=== PATIENT | female | born 1960 | race Asian ===

== ENCOUNTER 2022-06-02 08:54 | Inpatient (IN) | payer MEDICAID, SELFPAY ==
[~2022-06-02] VITALS: Ht 160 cm; Wt 54.9 kg
[~2022-06-02 08:54] MED LIST: AMLO5TAB66 PO; ASPI-825 PO; ATEN100T92 PO; SIMV-46 PO
[2022-06-02] MEDS ORDERED: ACETAMINOPHEN 500 MG TABLET PO ONE (09:15)
[2022-06-02 09:34] LABS: BASOPHILS % (AUTO) 0.7 % (0.0-2.0); EOSINOPHILS % (AUTO) 0.2 % (1.0-6.0); HEMATOCRIT 45.6 % (36-46); HEMOGLOBIN 15.2 g/dL (12.0-16.0); LYMPHOCYTES # (AUTO) 1.2 K/uL (1.0-4.8); LYMPHOCYTES % (AUTO) 13.6 % (22.0-44.0); MEAN CORPUSCULAR HEMOGLOBIN 29.5 pg (26.0-34.0); MEAN CORPUSCULAR HGB CONC 33.4 G/dL (31.0-37.0); MEAN CORPUSCULAR VOLUME 88 fL (80-100); MONOCYTES # (AUTO) 0.5 K/uL (0.1-1.0); NEUTROPHILS # (AUTO) 7.2 K/uL (1.8-7.7); NEUTROPHILS % (AUTO) 79.5 % (40.0-70.0); PLATELET COUNT (AUTO) 260 K/uL (150-450); RED BLOOD CELL COUNT(AUTO) 5.17 MIL/uL (4.00-5.20); RED CELL DISTRIBUTION WIDTH 14.6 % (11.5-14.5)
[2022-06-02 09:58] LABS: CALCIUM, TOTAL 9.1 mg/dL (8.8-10.5); CREATININE 1.25 mg/dL (0.60-1.30); POTASSIUM 3.5 mmol/L (3.5-5.1)
[2022-06-02] MEDS ORDERED: CLOPIDOGREL BISULFATE 75 MG TABLET PO ONE (10:15)
[2022-06-02] MEDS ORDERED: ACETAMINOPHEN 325 MG TABLET PO PRN (10:30)
[2022-06-02] MEDS ORDERED: ONDANSETRON HCL 4 MG/2 ML VIAL IVP PRN ×2 (10:30→13:30)
[2022-06-02 11:06] LABS: COVID AG,FIA SOURCE NASOPHARYNGEAL
[2022-06-02] MEDS ORDERED: ASPI-1444 PO (11:10)
[2022-06-02] MEDS: AmLODIPine BESYLATE 5 MG TABLET PO SCH (11:15)
[2022-06-02] MEDS: ASPIRIN 81 MG DR TABLET PO SCH (11:15)
[2022-06-02 12:59] VITALS: BP 180/60
[2022-06-02] MEDS ORDERED: ASPIRIN 81 MG CHEWABLE TABLET PO ONE (13:30)
[2022-06-02 15:10] VITALS: BP 188/78
[2022-06-02] MEDS: HydrALAZINE HCL 20 MG/ML VIAL IVP PRN (15:27)
[2022-06-02] MEDS: HEPARIN SODIUM,PORCINE 5,000 UNITS/ML VIAL SQ SCH (16:57)
[2022-06-02 20:19] VITALS: BP 165/91
[2022-06-02] MEDS ORDERED: ATORVASTATIN CALCIUM 20 MG TABLET PO SCH (21:00)
[2022-06-02] MEDS: DOCUSATE SODIUM 100 MG CAPSULE PO SCH (21:20)
[2022-06-03 00:20] VITALS: BP 177/90
[2022-06-03] MEDS: HydrALAZINE HCL 20 MG/ML VIAL IVP PRN ×3 (00:48→20:52)
[2022-06-03] MEDS: HEPARIN SODIUM,PORCINE 5,000 UNITS/ML VIAL SQ SCH ×3 (00:48→17:02)
[2022-06-03 04:23] VITALS: BP 150/66
[2022-06-03 06:49] LABS: CHOL/HDL RATIO 4.3 (3.9-5.7); CREATININE 1.11 mg/dL (0.60-1.30); POTASSIUM 3.5 mmol/L (3.5-5.1); THYROID STIMULATING HORMONE 2.72 uIU/mL (0.36-3.74)
[2022-06-03 06:56] LABS: BASOPHILS % (AUTO) 0.6 % (0.0-2.0); EOSINOPHILS % (AUTO) 0.6 % (1.0-6.0); HEMATOCRIT 42.8 % (36-46); HEMOGLOBIN 14.2 g/dL (12.0-16.0); LYMPHOCYTES # (AUTO) 2.3 K/uL (1.0-4.8); LYMPHOCYTES % (AUTO) 22.6 % (22.0-44.0); MEAN CORPUSCULAR HEMOGLOBIN 29.5 pg (26.0-34.0); MEAN CORPUSCULAR HGB CONC 33.1 G/dL (31.0-37.0); MEAN CORPUSCULAR VOLUME 89 fL (80-100); MONOCYTES # (AUTO) 0.9 K/uL (0.1-1.0); NEUTROPHILS # (AUTO) 6.7 K/uL (1.8-7.7); NEUTROPHILS % (AUTO) 67.2 % (40.0-70.0); PLATELET COUNT (AUTO) 256 K/uL (150-450); RED BLOOD CELL COUNT(AUTO) 4.81 MIL/uL (4.00-5.20); RED CELL DISTRIBUTION WIDTH 14.9 % (11.5-14.5)
[2022-06-03 08:09] VITALS: BP 182/83
[2022-06-03] MEDS: AmLODIPine BESYLATE 5 MG TABLET PO SCH (09:03)
[2022-06-03] MEDS: ATENOLOL 100 MG TABLET PO SCH (09:03)
[2022-06-03] MEDS: DOCUSATE SODIUM 100 MG CAPSULE PO SCH ×2 (09:03→20:50)
[2022-06-03] MEDS: ASPIRIN 81 MG DR TABLET PO SCH (09:03)
[2022-06-03] MEDS: PANTOPRAZOLE SODIUM 40 MG DR TABLET PO SCH (09:03)
[2022-06-03] MEDS ORDERED: AmLODIPine BESYLATE 5 MG TABLET PO ONE (09:45)
[2022-06-03 12:08] VITALS: BP 185/67
[2022-06-03 16:08] VITALS: BP 184/69
[2022-06-03 20:17] VITALS: BP 181/67
[2022-06-03] MEDS: ATORVASTATIN CALCIUM 20 MG TABLET PO SCH (20:51)
[2022-06-03] MEDS ORDERED: CYCLOBENZAPRINE HCL 10 MG TABLET PO ONE (23:00)
[2022-06-04] VITALS (7 sets, daily range): BP systolic 150–184; BP diastolic 54–72
[2022-06-04] MEDS ORDERED: NITROGLYCERIN 0.4 MG SUBLINGUAL TABLET #25 SL ONE (00:15)
[2022-06-04] MEDS: HEPARIN SODIUM,PORCINE 5,000 UNITS/ML VIAL SQ SCH ×4 (00:48→23:31)
[2022-06-04] MEDS: HydrALAZINE HCL 20 MG/ML VIAL IVP PRN (04:39)
[2022-06-04 07:00] LABS: BASOPHILS % (AUTO) 0.6 % (0.0-2.0); EOSINOPHILS % (AUTO) 0.1 % (1.0-6.0); HEMATOCRIT 44.8 % (36-46); HEMOGLOBIN 15.1 g/dL (12.0-16.0); LYMPHOCYTES # (AUTO) 1.3 K/uL (1.0-4.8); LYMPHOCYTES % (AUTO) 12.1 % (22.0-44.0); MEAN CORPUSCULAR HEMOGLOBIN 29.7 pg (26.0-34.0); MEAN CORPUSCULAR HGB CONC 33.8 G/dL (31.0-37.0); MEAN CORPUSCULAR VOLUME 88 fL (80-100); NEUTROPHILS # (AUTO) 8.6 K/uL (1.8-7.7); NEUTROPHILS % (AUTO) 78.2 % (40.0-70.0); PLATELET COUNT (AUTO) 296 K/uL (150-450); RED BLOOD CELL COUNT(AUTO) 5.09 MIL/uL (4.00-5.20); RED CELL DISTRIBUTION WIDTH 14.8 % (11.5-14.5)
[2022-06-04 07:08] LABS: CALCIUM, TOTAL 9.3 mg/dL (8.8-10.5); CREATININE 1.1 mg/dL (0.60-1.30); POTASSIUM 3.6 mmol/L (3.5-5.1)
[2022-06-04 07:23] LABS: BILIRUBIN,DIRECT 0.2 mg/dL (0.00-0.20); BILIRUBIN,TOTAL 0.6 mg/dL (0.1-1.0); TOTAL PROTEIN, SERUM 6.6 g/dL (6.4-8.2)
[2022-06-04] MEDS: DOCUSATE SODIUM 100 MG CAPSULE PO SCH ×2 (11:46→21:39)
[2022-06-04] MEDS: ASPIRIN 81 MG DR TABLET PO SCH (11:46)
[2022-06-04] MEDS: PANTOPRAZOLE SODIUM 40 MG DR TABLET PO SCH (11:46)
[2022-06-04] MEDS: AmLODIPine BESYLATE 10 MG TABLET PO SCH (11:46)
[2022-06-04] MEDS: CLOPIDOGREL BISULFATE 75 MG TABLET PO SCH (11:46)
[2022-06-04] MEDS: ATENOLOL 100 MG TABLET PO SCH (11:49)
[2022-06-04] MEDS: HydrALAZINE HCL 25 MG TABLET PO SCH ×2 (16:27→21:39)
[2022-06-04] MEDS ORDERED: DEXTROSE 5%-0.45% SODIUM CHL 1,000 ML IV ONE (21:15)
[2022-06-04] MEDS: ATORVASTATIN CALCIUM 20 MG TABLET PO SCH (21:39)
[2022-06-05 00:07] VITALS: BP 161/69
[2022-06-05] MEDS: HydrALAZINE HCL 20 MG/ML VIAL IVP PRN (01:08)
[2022-06-05 06:09] LABS: BASOPHILS % (AUTO) 0.5 % (0.0-2.0); EOSINOPHILS % (AUTO) 0.6 % (1.0-6.0); HEMATOCRIT 42.6 % (36-46); HEMOGLOBIN 14.1 g/dL (12.0-16.0); LYMPHOCYTES # (AUTO) 0.9 K/uL (1.0-4.8); LYMPHOCYTES % (AUTO) 9.7 % (22.0-44.0); MEAN CORPUSCULAR HEMOGLOBIN 29.3 pg (26.0-34.0); MEAN CORPUSCULAR HGB CONC 33.2 G/dL (31.0-37.0); MEAN CORPUSCULAR VOLUME 88 fL (80-100); MONOCYTES % (AUTO) 10.5 % (2.0-9.0); NEUTROPHILS # (AUTO) 7.5 K/uL (1.8-7.7); NEUTROPHILS % (AUTO) 78.7 % (40.0-70.0); PLATELET COUNT (AUTO) 269 K/uL (150-450); RED BLOOD CELL COUNT(AUTO) 4.82 MIL/uL (4.00-5.20); RED CELL DISTRIBUTION WIDTH 14.7 % (11.5-14.5)
[2022-06-05 06:18] LABS: CALCIUM, TOTAL 8.8 mg/dL (8.8-10.5); CREATININE 1.05 mg/dL (0.60-1.30); POTASSIUM 3.6 mmol/L (3.5-5.1)
[2022-06-05 08:03] VITALS: BP 154/66
[2022-06-05] MEDS: DOCUSATE SODIUM 100 MG CAPSULE PO SCH ×2 (09:05→20:49)
[2022-06-05] MEDS: HEPARIN SODIUM,PORCINE 5,000 UNITS/ML VIAL SQ SCH ×3 (09:05→23:22)
[2022-06-05] MEDS: HydrALAZINE HCL 25 MG TABLET PO SCH ×3 (09:05→20:50)
[2022-06-05] MEDS: MEGESTROL ACETATE 40 MG TABLET PO SCH ×2 (09:05→20:49)
[2022-06-05] MEDS: AmLODIPine BESYLATE 10 MG TABLET PO SCH (09:06)
[2022-06-05] MEDS: ASPIRIN 81 MG DR TABLET PO SCH (09:06)
[2022-06-05] MEDS: PANTOPRAZOLE SODIUM 40 MG DR TABLET PO SCH (09:06)
[2022-06-05] MEDS: CLOPIDOGREL BISULFATE 75 MG TABLET PO SCH (09:06)
[2022-06-05] MEDS: ATENOLOL 100 MG TABLET PO SCH (10:00)
[2022-06-05 11:27] VITALS: BP 146/53
[2022-06-05 15:51] VITALS: BP 149/55
[2022-06-05 19:41] VITALS: BP 159/63
[2022-06-05] MEDS: ATORVASTATIN CALCIUM 20 MG TABLET PO SCH (20:49)
[2022-06-05] MEDS: ACETAMINOPHEN 325 MG TABLET PO PRN (21:18)
[2022-06-05 22:59] VITALS: BP 144/51
[2022-06-06 05:00] VITALS: BP 161/59
[2022-06-06 08:09] VITALS: BP 179/63
[2022-06-06] MEDS: DOCUSATE SODIUM 100 MG CAPSULE PO SCH ×2 (09:00→20:23)
[2022-06-06] MEDS: HEPARIN SODIUM,PORCINE 5,000 UNITS/ML VIAL SQ SCH ×2 (09:20→16:24)
[2022-06-06] MEDS: ASPIRIN 81 MG DR TABLET PO SCH (09:21)
[2022-06-06] MEDS: MEGESTROL ACETATE 40 MG TABLET PO SCH ×2 (09:21→20:22)
[2022-06-06] MEDS: ATENOLOL 100 MG TABLET PO SCH (09:21)
[2022-06-06] MEDS: AmLODIPine BESYLATE 10 MG TABLET PO SCH (09:21)
[2022-06-06] MEDS: HydrALAZINE HCL 25 MG TABLET PO SCH ×3 (09:21→20:22)
[2022-06-06] MEDS: CLOPIDOGREL BISULFATE 75 MG TABLET PO SCH (09:21)
[2022-06-06] MEDS: PANTOPRAZOLE SODIUM 40 MG DR TABLET PO SCH (09:21)
[2022-06-06 09:30] VITALS: BP 147/65
[2022-06-06 16:30] VITALS: BP 143/70
[2022-06-06] MEDS: ATORVASTATIN CALCIUM 20 MG TABLET PO SCH (20:23)
[2022-06-07] MEDS: HEPARIN SODIUM,PORCINE 5,000 UNITS/ML VIAL SQ SCH ×4 (00:07→23:27)
[2022-06-07 04:25] VITALS: BP 177/68
[2022-06-07 05:30] VITALS: BP 151/66
[2022-06-07 08:33] VITALS: BP 183/78
[2022-06-07] MEDS: HydrALAZINE HCL 20 MG/ML VIAL IVP PRN (08:40)
[2022-06-07] MEDS: DOCUSATE SODIUM 100 MG CAPSULE PO SCH ×2 (09:00→20:56)
[2022-06-07] MEDS: PANTOPRAZOLE SODIUM 40 MG DR TABLET PO SCH (09:20)
[2022-06-07] MEDS: AmLODIPine BESYLATE 10 MG TABLET PO SCH (09:21)
[2022-06-07] MEDS: CLOPIDOGREL BISULFATE 75 MG TABLET PO SCH (09:21)
[2022-06-07] MEDS: HydrALAZINE HCL 25 MG TABLET PO SCH (09:21)
[2022-06-07] MEDS: ASPIRIN 81 MG DR TABLET PO SCH (09:23)
[2022-06-07] MEDS: MEGESTROL ACETATE 40 MG TABLET PO SCH ×2 (09:23→20:57)
[2022-06-07] MEDS: ATENOLOL 100 MG TABLET PO SCH (11:38)
[2022-06-07 12:03] VITALS: BP 139/61
[2022-06-07] MEDS: HydrALAZINE HCL 50 MG TABLET PO SCH ×2 (15:33→20:56)
[2022-06-07 16:41] VITALS: BP 140/59
[2022-06-07 19:43] VITALS: BP 142/60
[2022-06-07] MEDS: ATORVASTATIN CALCIUM 20 MG TABLET PO SCH (20:56)
[2022-06-08 03:50] VITALS: BP 129/59
[2022-06-08 07:30] VITALS: BP 162/61
[2022-06-08] MEDS: ATENOLOL 100 MG TABLET PO SCH (08:44)
[2022-06-08] MEDS: CLOPIDOGREL BISULFATE 75 MG TABLET PO SCH (08:44)
[2022-06-08] MEDS: MEGESTROL ACETATE 40 MG TABLET PO SCH ×2 (08:44→21:06)
[2022-06-08] MEDS: AmLODIPine BESYLATE 10 MG TABLET PO SCH (08:44)
[2022-06-08] MEDS: DOCUSATE SODIUM 100 MG CAPSULE PO SCH ×2 (08:45→21:06)
[2022-06-08] MEDS: PANTOPRAZOLE SODIUM 40 MG DR TABLET PO SCH (08:45)
[2022-06-08] MEDS: HEPARIN SODIUM,PORCINE 5,000 UNITS/ML VIAL SQ SCH ×2 (08:45→16:31)
[2022-06-08] MEDS: HydrALAZINE HCL 50 MG TABLET PO SCH ×3 (08:45→21:07)
[2022-06-08] MEDS: ASPIRIN 81 MG DR TABLET PO SCH (08:45)
[2022-06-08 15:59] VITALS: BP 153/61
[2022-06-08 20:35] VITALS: BP 143/59
[2022-06-08] MEDS: ATORVASTATIN CALCIUM 20 MG TABLET PO SCH (21:05)
[2022-06-09] MEDS: HEPARIN SODIUM,PORCINE 5,000 UNITS/ML VIAL SQ SCH ×4 (00:30→23:18)
[2022-06-09 04:25] VITALS: BP 156/59
[2022-06-09 08:00] VITALS: BP 146/59
[2022-06-09] MEDS: MEGESTROL ACETATE 40 MG TABLET PO SCH ×2 (08:50→20:51)
[2022-06-09] MEDS: AmLODIPine BESYLATE 10 MG TABLET PO SCH (08:50)
[2022-06-09] MEDS: HydrALAZINE HCL 50 MG TABLET PO SCH ×3 (08:50→20:47)
[2022-06-09] MEDS: CLOPIDOGREL BISULFATE 75 MG TABLET PO SCH (08:50)
[2022-06-09] MEDS: ASPIRIN 81 MG DR TABLET PO SCH (08:51)
[2022-06-09] MEDS: DOCUSATE SODIUM 100 MG CAPSULE PO SCH ×2 (08:51→20:48)
[2022-06-09] MEDS: PANTOPRAZOLE SODIUM 40 MG DR TABLET PO SCH (08:51)
[2022-06-09] MEDS: ATENOLOL 100 MG TABLET PO SCH (10:14)
[2022-06-09 15:40] VITALS: BP 152/68
[2022-06-09 20:47] VITALS: BP 175/72
[2022-06-09] MEDS: ATORVASTATIN CALCIUM 20 MG TABLET PO SCH (20:48)
[2022-06-09 23:13] VITALS: BP 151/56
[2022-06-10 04:25] VITALS: BP 151/64
[2022-06-10] MEDS: ASPIRIN 81 MG DR TABLET PO SCH (07:57)
[2022-06-10] MEDS: HEPARIN SODIUM,PORCINE 5,000 UNITS/ML VIAL SQ SCH ×3 (07:57→23:55)
[2022-06-10] MEDS: MEGESTROL ACETATE 40 MG TABLET PO SCH ×2 (07:58→20:33)
[2022-06-10] MEDS: HydrALAZINE HCL 50 MG TABLET PO SCH ×3 (07:58→20:32)
[2022-06-10] MEDS: CLOPIDOGREL BISULFATE 75 MG TABLET PO SCH (07:59)
[2022-06-10] MEDS: AmLODIPine BESYLATE 10 MG TABLET PO SCH (07:59)
[2022-06-10] MEDS: PANTOPRAZOLE SODIUM 40 MG DR TABLET PO SCH (07:59)
[2022-06-10 08:10] VITALS: BP 176/66
[2022-06-10] MEDS: DOCUSATE SODIUM 100 MG CAPSULE PO SCH (08:54)
[2022-06-10] MEDS: ATENOLOL 100 MG TABLET PO SCH (10:30)
[2022-06-10 15:54] VITALS: BP 128/63
[2022-06-10] MEDS ORDERED: HydrALAZINE HCL 50 MG TABLET PO SCH (16:00)
[2022-06-10 20:32] VITALS: BP 164/72
[2022-06-10] MEDS: ATORVASTATIN CALCIUM 20 MG TABLET PO SCH (20:33)
[2022-06-10] MEDS: DOCUSATE SODIUM 100 MG/10 ML LIQUID UDCUP PO SCH (20:34)
[2022-06-10] MEDS: HydrALAZINE HCL 20 MG/ML VIAL IVP PRN (23:57)
[2022-06-11] VITALS: BP 142/60
[2022-06-11 05:09] VITALS: BP 151/66
[2022-06-11] MEDS: DOCUSATE SODIUM 100 MG/10 ML LIQUID UDCUP PO SCH ×2 (08:13→21:07)
[2022-06-11] MEDS: MEGESTROL ACETATE 40 MG TABLET PO SCH ×2 (08:13→21:07)
[2022-06-11] MEDS: ASPIRIN 81 MG DR TABLET PO SCH (08:14)
[2022-06-11] MEDS: CLOPIDOGREL BISULFATE 75 MG TABLET PO SCH (08:14)
[2022-06-11] MEDS: AmLODIPine BESYLATE 10 MG TABLET PO SCH (08:14)
[2022-06-11] MEDS: HEPARIN SODIUM,PORCINE 5,000 UNITS/ML VIAL SQ SCH ×3 (08:14→16:37)
[2022-06-11] MEDS: PANTOPRAZOLE SODIUM 40 MG DR TABLET PO SCH (08:15)
[2022-06-11] MEDS: HydrALAZINE HCL 25 MG TABLET PO SCH ×3 (08:20→21:10)
[2022-06-11] MEDS: ATENOLOL 25 MG TABLET PO SCH (09:42)
[2022-06-11 11:15] VITALS: BP 146/76
[2022-06-11 11:30] VITALS: BP 167/53
[2022-06-11 20:00] VITALS: BP 185/64
[2022-06-11] MEDS: ATORVASTATIN CALCIUM 20 MG TABLET PO SCH (21:07)
[2022-06-11 23:50] VITALS: BP 176/65
[2022-06-12] VITALS (8 sets, daily range): BP systolic 138–178; BP diastolic 61–90
[2022-06-12] MEDS: HEPARIN SODIUM,PORCINE 5,000 UNITS/ML VIAL SQ SCH ×4 (00:28→23:34)
[2022-06-12] MEDS: NITROGLYCERIN 2% (1 GM=INCH) OINTMENT PACKET TP SCH ×5 (00:28→23:35)
[2022-06-12] MEDS: HydrALAZINE HCL 25 MG TABLET PO SCH ×3 (08:31→22:26)
[2022-06-12] MEDS: AmLODIPine BESYLATE 10 MG TABLET PO SCH (08:32)
[2022-06-12] MEDS: CLOPIDOGREL BISULFATE 75 MG TABLET PO SCH (08:32)
[2022-06-12] MEDS: ASPIRIN 81 MG DR TABLET PO SCH (08:32)
[2022-06-12] MEDS: MEGESTROL ACETATE 40 MG TABLET PO SCH ×2 (08:33→22:28)
[2022-06-12] MEDS: DOCUSATE SODIUM 100 MG/10 ML LIQUID UDCUP PO SCH ×2 (08:33→21:00)
[2022-06-12] MEDS: PANTOPRAZOLE SODIUM 40 MG DR TABLET PO SCH (09:00)
[2022-06-12] MEDS: ATENOLOL 25 MG TABLET PO SCH (10:48)
[2022-06-12] MEDS: ATORVASTATIN CALCIUM 20 MG TABLET PO SCH (22:27)
[2022-06-13 05:23] VITALS: BP 163/68
[2022-06-13] MEDS: NITROGLYCERIN 2% (1 GM=INCH) OINTMENT PACKET TP SCH ×3 (05:35→18:45)
[2022-06-13] MEDS: CloNIDine HCL 0.1 MG TABLET PO PRN (05:37)
[2022-06-13] MEDS: CLOPIDOGREL BISULFATE 75 MG TABLET PO SCH (08:43)
[2022-06-13] MEDS: AmLODIPine BESYLATE 10 MG TABLET PO SCH (08:43)
[2022-06-13] MEDS: HydrALAZINE HCL 25 MG TABLET PO SCH ×3 (08:43→20:57)
[2022-06-13] MEDS: ASPIRIN 81 MG DR TABLET PO SCH (08:43)
[2022-06-13] MEDS: DOCUSATE SODIUM 100 MG/10 ML LIQUID UDCUP PO SCH ×2 (08:43→20:58)
[2022-06-13] MEDS: MEGESTROL ACETATE 40 MG TABLET PO SCH ×2 (08:44→20:57)
[2022-06-13] MEDS: HEPARIN SODIUM,PORCINE 5,000 UNITS/ML VIAL SQ SCH ×2 (08:44→16:03)
[2022-06-13] MEDS: ATENOLOL 25 MG TABLET PO SCH (10:30)
[2022-06-13 15:43] VITALS: BP 164/66
[2022-06-13 19:50] VITALS: BP 145/55
[2022-06-13] MEDS: ATORVASTATIN CALCIUM 20 MG TABLET PO SCH (20:57)
[2022-06-14 00:16] VITALS: BP 146/89
[2022-06-14] MEDS: NITROGLYCERIN 2% (1 GM=INCH) OINTMENT PACKET TP SCH ×5 (00:18→23:48)
[2022-06-14] MEDS: HEPARIN SODIUM,PORCINE 5,000 UNITS/ML VIAL SQ SCH ×4 (00:19→23:47)
[2022-06-14 04:25] VITALS: BP 148/57
[2022-06-14 06:32] LABS: BASOPHILS % (AUTO) 0.6 % (0.0-2.0); EOSINOPHILS % (AUTO) 0.5 % (1.0-6.0); HEMATOCRIT 39.1 % (36-46); LYMPHOCYTES # (AUTO) 1.3 K/uL (1.0-4.8); LYMPHOCYTES % (AUTO) 12.7 % (22.0-44.0); MEAN CORPUSCULAR HEMOGLOBIN 29.7 pg (26.0-34.0); MEAN CORPUSCULAR HGB CONC 33.4 G/dL (31.0-37.0); MEAN CORPUSCULAR VOLUME 89 fL (80-100); MONOCYTES # (AUTO) 1.2 K/uL (0.1-1.0); MONOCYTES % (AUTO) 11.6 % (2.0-9.0); NEUTROPHILS # (AUTO) 7.8 K/uL (1.8-7.7); NEUTROPHILS % (AUTO) 74.6 % (40.0-70.0); PLATELET COUNT (AUTO) 368 K/uL (150-450); RED BLOOD CELL COUNT(AUTO) 4.39 MIL/uL (4.00-5.20)
[2022-06-14 06:48] LABS: CALCIUM, TOTAL 9.4 mg/dL (8.8-10.5); CREATININE 0.99 mg/dL (0.60-1.30); POTASSIUM 4.3 mmol/L (3.5-5.1)
[2022-06-14 07:28] VITALS: BP 138/57
[2022-06-14] MEDS: AmLODIPine BESYLATE 10 MG TABLET PO SCH (08:50)
[2022-06-14] MEDS: DOCUSATE SODIUM 100 MG/10 ML LIQUID UDCUP PO SCH ×2 (08:51→21:07)
[2022-06-14] MEDS: MEGESTROL ACETATE 40 MG TABLET PO SCH ×2 (08:51→21:08)
[2022-06-14] MEDS: ASPIRIN 81 MG DR TABLET PO SCH (08:51)
[2022-06-14] MEDS: HydrALAZINE HCL 25 MG TABLET PO SCH ×3 (08:52→21:07)
[2022-06-14] MEDS: CLOPIDOGREL BISULFATE 75 MG TABLET PO SCH (09:50)
[2022-06-14] MEDS: ATENOLOL 25 MG TABLET PO SCH (10:43)
[2022-06-14 10:44] VITALS: BP 158/63
[2022-06-14 15:18] VITALS: BP 152/70
[2022-06-14 20:29] VITALS: BP 143/63
[2022-06-14] MEDS: ATORVASTATIN CALCIUM 20 MG TABLET PO SCH (21:07)
[2022-06-15] VITALS (8 sets, daily range): BP systolic 142–185; BP diastolic 62–75
[2022-06-15] MEDS: CloNIDine HCL 0.1 MG TABLET PO PRN ×2 (05:00→21:51)
[2022-06-15] MEDS: NITROGLYCERIN 2% (1 GM=INCH) OINTMENT PACKET TP SCH ×4 (06:11→23:15)
[2022-06-15 06:39] LABS: BASOPHILS % (AUTO) 0.8 % (0.0-2.0); EOSINOPHILS % (AUTO) 0.7 % (1.0-6.0); HEMATOCRIT 36.4 % (36-46); HEMOGLOBIN 12.5 g/dL (12.0-16.0); LYMPHOCYTES # (AUTO) 1.2 K/uL (1.0-4.8); LYMPHOCYTES % (AUTO) 13.6 % (22.0-44.0); MEAN CORPUSCULAR HEMOGLOBIN 30.4 pg (26.0-34.0); MEAN CORPUSCULAR HGB CONC 34.3 G/dL (31.0-37.0); MEAN CORPUSCULAR VOLUME 89 fL (80-100); MONOCYTES % (AUTO) 10.7 % (2.0-9.0); NEUTROPHILS # (AUTO) 6.7 K/uL (1.8-7.7); NEUTROPHILS % (AUTO) 74.2 % (40.0-70.0); PLATELET COUNT (AUTO) 375 K/uL (150-450); RED BLOOD CELL COUNT(AUTO) 4.12 MIL/uL (4.00-5.20); RED CELL DISTRIBUTION WIDTH 14.7 % (11.5-14.5)
[2022-06-15 06:45] LABS: ALANINE AMINOTRANSFERASE 126 U/L (12-78); ALBUMIN 2.3 g/dL (3.4-5.0); ALKALINE PHOSPHATASE 633 U/L (46-116); ANION GAP 6 mmol/L (8-16); ASPARTATE AMINOTRANSFERASE 135 U/L (15-37); BILIRUBIN,TOTAL 0.7 mg/dL (0.1-1.0); CALCIUM, TOTAL 9.1 mg/dL (8.8-10.5); CARBON DIOXIDE 24 mmol/L (22-29); CHLORIDE 104 mmol/L (98-107); CREATININE 0.91 mg/dL (0.60-1.30); GLUCOSE,RANDOM 98 mg/dL (70-110); POTASSIUM 3.9 mmol/L (3.5-5.1); SODIUM SERUM 134 mmol/L (136-145); TOTAL PROTEIN, SERUM 6.4 g/dL (6.4-8.2); UREA NITROGEN, BLOOD 31 mg/dL (7-18)
[2022-06-15 06:46] LABS: GLOMERULAR FILTR. RATE CALC > 60 mL/min (>60)
[2022-06-15] MEDS ORDERED: SODIUM CL IRRIG SOLN BOTTLE 250 ML IRRIG ONE (08:16)
[2022-06-15] MEDS: DOCUSATE SODIUM 100 MG/10 ML LIQUID UDCUP PO SCH ×2 (08:47→20:05)
[2022-06-15] MEDS: HEPARIN SODIUM,PORCINE 5,000 UNITS/ML VIAL SQ SCH ×3 (08:48→22:58)
[2022-06-15] MEDS: ASPIRIN 81 MG DR TABLET PO SCH (08:49)
[2022-06-15] MEDS: AmLODIPine BESYLATE 10 MG TABLET PO SCH (08:49)
[2022-06-15] MEDS: MEGESTROL ACETATE 40 MG TABLET PO SCH ×2 (08:49→20:04)
[2022-06-15] MEDS: CLOPIDOGREL BISULFATE 75 MG TABLET PO SCH (08:49)
[2022-06-15] MEDS: HydrALAZINE HCL 25 MG TABLET PO SCH ×3 (08:52→20:04)
[2022-06-15] MEDS: ATENOLOL 25 MG TABLET PO SCH (10:00)
[2022-06-15] MEDS: ATORVASTATIN CALCIUM 20 MG TABLET PO SCH (20:04)
[2022-06-15] MEDS: ACETAMINOPHEN 325 MG TABLET PO PRN (21:51)
[2022-06-16 05:00] VITALS: BP 163/55
[2022-06-16] MEDS: NITROGLYCERIN 2% (1 GM=INCH) OINTMENT PACKET TP SCH ×3 (06:18→23:16)
[2022-06-16 07:20] VITALS: BP 172/69
[2022-06-16] MEDS: HEPARIN SODIUM,PORCINE 5,000 UNITS/ML VIAL SQ SCH ×3 (07:53→23:10)
[2022-06-16] MEDS: AmLODIPine BESYLATE 10 MG TABLET PO SCH (07:53)
[2022-06-16] MEDS: ASPIRIN 81 MG DR TABLET PO SCH (08:00)
[2022-06-16] MEDS: HydrALAZINE HCL 25 MG TABLET PO SCH ×3 (08:00→20:48)
[2022-06-16] MEDS: MEGESTROL ACETATE 40 MG TABLET PO SCH ×2 (08:01→20:49)
[2022-06-16] MEDS: CLOPIDOGREL BISULFATE 75 MG TABLET PO SCH (08:01)
[2022-06-16] MEDS: DOCUSATE SODIUM 100 MG/10 ML LIQUID UDCUP PO SCH ×2 (08:02→21:00)
[2022-06-16] MEDS: ATENOLOL 25 MG TABLET PO SCH (10:49)
[2022-06-16 15:32] VITALS: BP 154/74
[2022-06-16 19:52] VITALS: BP 157/69
[2022-06-16] MEDS: ATORVASTATIN CALCIUM 20 MG TABLET PO SCH (20:49)
[2022-06-16 23:08] VITALS: BP 156/54
[2022-06-17 04:40] VITALS: BP 156/69
[2022-06-17] MEDS: NITROGLYCERIN 2% (1 GM=INCH) OINTMENT PACKET TP SCH (06:00)
[2022-06-17 06:01] VITALS: BP 154/66
[2022-06-17 07:24] VITALS: BP 178/79
[2022-06-17] MEDS: HEPARIN SODIUM,PORCINE 5,000 UNITS/ML VIAL SQ SCH ×3 (08:00→22:34)
[2022-06-17] MEDS: ATENOLOL 25 MG TABLET PO SCH (08:41)
[2022-06-17] MEDS: CLOPIDOGREL BISULFATE 75 MG TABLET PO SCH (08:42)
[2022-06-17] MEDS: HydrALAZINE HCL 25 MG TABLET PO SCH ×3 (08:42→20:00)
[2022-06-17] MEDS: AmLODIPine BESYLATE 10 MG TABLET PO SCH (08:42)
[2022-06-17] MEDS: ASPIRIN 81 MG DR TABLET PO SCH (08:43)
[2022-06-17] MEDS: MEGESTROL ACETATE 40 MG TABLET PO SCH ×2 (08:44→20:01)
[2022-06-17] MEDS: DOCUSATE SODIUM 100 MG/10 ML LIQUID UDCUP PO SCH ×2 (08:46→20:10)
[2022-06-17 15:12] VITALS: BP 159/74
[2022-06-17] MEDS: ACETAMINOPHEN 325 MG TABLET PO PRN (15:17)
[2022-06-17] MEDS: CYCLOBENZAPRINE HCL 10 MG TABLET PO SCH (15:17)
[2022-06-17] MEDS: ATORVASTATIN CALCIUM 20 MG TABLET PO SCH (20:01)
[2022-06-17] MEDS: HYDROCODONE/ACETAMINOPHEN 5-325 MG TABLET PO PRN (20:05)
[2022-06-17 20:09] VITALS: BP 197/74
[2022-06-17 22:24] VITALS: BP 177/68
[2022-06-17] MEDS: CloNIDine HCL 0.1 MG TABLET PO PRN (22:34)
[2022-06-18] MEDS: MORPHINE SULFATE 2 MG/ML SYRINGE IVP PRN (00:55)
[2022-06-18 05:06] VITALS: BP 162/69
[2022-06-18 07:53] VITALS: BP 186/67
[2022-06-18] MEDS: ATENOLOL 25 MG TABLET PO SCH (08:33)
[2022-06-18] MEDS: CLOPIDOGREL BISULFATE 75 MG TABLET PO SCH (08:33)
[2022-06-18] MEDS: HydrALAZINE HCL 25 MG TABLET PO SCH ×3 (08:33→20:37)
[2022-06-18] MEDS: ASPIRIN 81 MG DR TABLET PO SCH (08:33)
[2022-06-18] MEDS: HEPARIN SODIUM,PORCINE 5,000 UNITS/ML VIAL SQ SCH ×2 (08:34→16:27)
[2022-06-18] MEDS: CYCLOBENZAPRINE HCL 10 MG TABLET PO SCH (08:34)
[2022-06-18] MEDS: AmLODIPine BESYLATE 10 MG TABLET PO SCH (08:34)
[2022-06-18] MEDS: MEGESTROL ACETATE 40 MG TABLET PO SCH ×2 (08:39→20:34)
[2022-06-18] MEDS: DOCUSATE SODIUM 100 MG/10 ML LIQUID UDCUP PO SCH (09:00)
[2022-06-18 11:58] VITALS: BP 169/65
[2022-06-18] MEDS: CloNIDine HCL 0.1 MG TABLET PO PRN (12:04)
[2022-06-18] MEDS: THIAMINE 100 MG TABLET PO SCH (15:17)
[2022-06-18 16:02] VITALS: BP 139/62
[2022-06-18] MEDS: DOCUSATE SODIUM 100 MG CAPSULE PO PRN ×2 (16:27→20:34)
[2022-06-18 17:17] VITALS: BP 161/63
[2022-06-18 19:30] VITALS: BP 150/69
[2022-06-18] MEDS: ATORVASTATIN CALCIUM 20 MG TABLET PO SCH (20:35)
[2022-06-19] VITALS (7 sets, daily range): BP systolic 111–171; BP diastolic 58–69
[2022-06-19] MEDS: HYDROCODONE/ACETAMINOPHEN 5-325 MG TABLET PO PRN ×3 (05:14→20:50)
[2022-06-19 06:56] LABS: CALCIUM, TOTAL 9.1 mg/dL (8.8-10.5); CREATININE 0.96 mg/dL (0.60-1.30); POTASSIUM 3.4 mmol/L (3.5-5.1)
[2022-06-19] MEDS: HEPARIN SODIUM,PORCINE 5,000 UNITS/ML VIAL SQ SCH ×5 (08:00→23:32)
[2022-06-19] MEDS: THIAMINE 100 MG TABLET PO SCH (08:23)
[2022-06-19] MEDS: DOCUSATE SODIUM 100 MG CAPSULE PO PRN (08:23)
[2022-06-19] MEDS: ASPIRIN 81 MG DR TABLET PO SCH (08:24)
[2022-06-19] MEDS: MULTIVITAMINS, THERAPEUTIC TABLET PO SCH (08:24)
[2022-06-19] MEDS: MEGESTROL ACETATE 40 MG TABLET PO SCH ×2 (08:25→20:50)
[2022-06-19] MEDS: CLOPIDOGREL BISULFATE 75 MG TABLET PO SCH (08:25)
[2022-06-19] MEDS: CYCLOBENZAPRINE HCL 10 MG TABLET PO SCH (08:25)
[2022-06-19] MEDS: AmLODIPine BESYLATE 10 MG TABLET PO SCH (08:25)
[2022-06-19] MEDS: ATENOLOL 25 MG TABLET PO SCH (10:00)
[2022-06-19] MEDS: HydrALAZINE HCL 25 MG TABLET PO SCH ×3 (11:06→20:50)
[2022-06-19] MEDS: ATORVASTATIN CALCIUM 20 MG TABLET PO SCH (20:50)
[2022-06-20] MEDS: ZOLPIDEM TARTRATE 5 MG TABLET PO PRN (00:30)
[2022-06-20] MEDS: ACETAMINOPHEN 325 MG TABLET PO PRN (00:30)
[2022-06-20 04:38] VITALS: BP 139/75
[2022-06-20 07:28] VITALS: BP 164/73
[2022-06-20] MEDS: CYCLOBENZAPRINE HCL 10 MG TABLET PO SCH (10:43)
[2022-06-20] MEDS: CLOPIDOGREL BISULFATE 75 MG TABLET PO SCH (10:43)
[2022-06-20] MEDS: HEPARIN SODIUM,PORCINE 5,000 UNITS/ML VIAL SQ SCH ×3 (10:43→23:25)
[2022-06-20] MEDS: ASPIRIN 81 MG DR TABLET PO SCH (10:43)
[2022-06-20] MEDS: AmLODIPine BESYLATE 10 MG TABLET PO SCH (10:43)
[2022-06-20] MEDS: HydrALAZINE HCL 25 MG TABLET PO SCH ×3 (10:43→21:09)
[2022-06-20] MEDS: MULTIVITAMINS, THERAPEUTIC TABLET PO SCH (10:44)
[2022-06-20] MEDS: HYDROCODONE/ACETAMINOPHEN 5-325 MG TABLET PO PRN ×3 (10:44→21:09)
[2022-06-20] MEDS: ATENOLOL 25 MG TABLET PO SCH (10:48)
[2022-06-20] MEDS: MEGESTROL ACETATE 40 MG TABLET PO SCH ×2 (10:48→21:09)
[2022-06-20] MEDS: THIAMINE 100 MG TABLET PO SCH (10:48)
[2022-06-20] MEDS: MORPHINE SULFATE 2 MG/ML SYRINGE IVP PRN (14:39)
[2022-06-20 15:36] VITALS: BP 173/78
[2022-06-20 20:27] VITALS: BP 153/70
[2022-06-20] MEDS: ATORVASTATIN CALCIUM 20 MG TABLET PO SCH (21:09)
[2022-06-21] MEDS: MORPHINE SULFATE 2 MG/ML SYRINGE IVP PRN (03:25)
[2022-06-21 05:30] VITALS: BP 147/78
[2022-06-21 07:14] VITALS: BP 160/80
[2022-06-21] MEDS: HEPARIN SODIUM,PORCINE 5,000 UNITS/ML VIAL SQ SCH ×3 (07:56→23:50)
[2022-06-21] MEDS: MULTIVITAMINS, THERAPEUTIC TABLET PO SCH (07:59)
[2022-06-21] MEDS: AmLODIPine BESYLATE 10 MG TABLET PO SCH (07:59)
[2022-06-21] MEDS: THIAMINE 100 MG TABLET PO SCH (08:00)
[2022-06-21] MEDS: CLOPIDOGREL BISULFATE 75 MG TABLET PO SCH (08:00)
[2022-06-21] MEDS: CYCLOBENZAPRINE HCL 10 MG TABLET PO SCH (08:00)
[2022-06-21] MEDS: ASPIRIN 81 MG DR TABLET PO SCH (08:00)
[2022-06-21] MEDS: MEGESTROL ACETATE 40 MG TABLET PO SCH ×2 (08:00→20:11)
[2022-06-21] MEDS: HydrALAZINE HCL 25 MG TABLET PO SCH ×3 (08:00→20:10)
[2022-06-21] MEDS: ATENOLOL 25 MG TABLET PO SCH (11:00)
[2022-06-21 15:33] VITALS: BP 165/73
[2022-06-21 19:49] VITALS: BP 141/61
[2022-06-21] MEDS: HYDROCODONE/ACETAMINOPHEN 5-325 MG TABLET PO PRN (20:10)
[2022-06-21] MEDS: ATORVASTATIN CALCIUM 20 MG TABLET PO SCH (20:10)
[2022-06-21 20:33] LABS: COVID AG,FIA SOURCE NASOPHARYNGEAL
[2022-06-22 05:26] VITALS: BP 144/65
[2022-06-22] MEDS: HYDROCODONE/ACETAMINOPHEN 5-325 MG TABLET PO PRN ×5 (05:52→23:49)
[2022-06-22 07:27] VITALS: BP 153/64
[2022-06-22] MEDS: HEPARIN SODIUM,PORCINE 5,000 UNITS/ML VIAL SQ SCH ×4 (08:00→23:38)
[2022-06-22] MEDS: CYCLOBENZAPRINE HCL 10 MG TABLET PO SCH (10:22)
[2022-06-22] MEDS: THIAMINE 100 MG TABLET PO SCH (10:22)
[2022-06-22] MEDS: CLOPIDOGREL BISULFATE 75 MG TABLET PO SCH (10:22)
[2022-06-22] MEDS: ATENOLOL 25 MG TABLET PO SCH (10:22)
[2022-06-22] MEDS: ASPIRIN 81 MG DR TABLET PO SCH (10:23)
[2022-06-22] MEDS: AmLODIPine BESYLATE 10 MG TABLET PO SCH (10:23)
[2022-06-22] MEDS: HydrALAZINE HCL 25 MG TABLET PO SCH ×3 (10:23→20:26)
[2022-06-22] MEDS: MULTIVITAMINS, THERAPEUTIC TABLET PO SCH (10:24)
[2022-06-22] MEDS: MEGESTROL ACETATE 40 MG TABLET PO SCH ×2 (10:24→20:26)
[2022-06-22 16:04] VITALS: BP 161/68
[2022-06-22 20:21] VITALS: BP 170/68
[2022-06-22] MEDS: ATORVASTATIN CALCIUM 20 MG TABLET PO SCH (20:26)
[2022-06-23 04:27] VITALS: BP 170/69
[2022-06-23] MEDS: HYDROCODONE/ACETAMINOPHEN 5-325 MG TABLET PO PRN ×4 (05:31→21:44)
[2022-06-23] MEDS: HEPARIN SODIUM,PORCINE 5,000 UNITS/ML VIAL SQ SCH ×3 (08:00→16:00)
[2022-06-23] MEDS: HydrALAZINE HCL 25 MG TABLET PO SCH ×3 (09:25→20:35)
[2022-06-23] MEDS: ASPIRIN 81 MG DR TABLET PO SCH (09:25)
[2022-06-23] MEDS: CLOPIDOGREL BISULFATE 75 MG TABLET PO SCH (09:26)
[2022-06-23] MEDS: AmLODIPine BESYLATE 10 MG TABLET PO SCH (09:26)
[2022-06-23] MEDS: ATENOLOL 25 MG TABLET PO SCH (09:26)
[2022-06-23] MEDS: MULTIVITAMINS, THERAPEUTIC TABLET PO SCH (09:26)
[2022-06-23] MEDS: CYCLOBENZAPRINE HCL 10 MG TABLET PO SCH (09:26)
[2022-06-23] MEDS: THIAMINE 100 MG TABLET PO SCH (09:26)
[2022-06-23] MEDS: MEGESTROL ACETATE 40 MG TABLET PO SCH ×2 (09:29→20:35)
[2022-06-23] MEDS: MAGNESIUM HYDROXIDE SUSPENSION 30 ML UDCUP PO PRN (18:27)
[2022-06-23] MEDS: DOCUSATE SODIUM 100 MG CAPSULE PO PRN (18:27)
[2022-06-23 20:32] VITALS: BP 129/64
[2022-06-23] MEDS: ATORVASTATIN CALCIUM 20 MG TABLET PO SCH (20:35)
[2022-06-24] MEDS: HEPARIN SODIUM,PORCINE 5,000 UNITS/ML VIAL SQ SCH ×3 (00:11→16:47)
[2022-06-24] MEDS: HYDROCODONE/ACETAMINOPHEN 5-325 MG TABLET PO PRN ×3 (03:05→21:24)
[2022-06-24 04:42] VITALS: BP 125/57
[2022-06-24] MEDS: BENZONATATE 100 MG CAPSULE PO PRN (05:48)
[2022-06-24] MEDS: BISACODYL 10 MG RECTAL RECTAL SUPPOSITORY PR PRN (05:48)
[2022-06-24 07:33] VITALS: BP 132/70
[2022-06-24] MEDS: MULTIVITAMINS, THERAPEUTIC TABLET PO SCH (08:39)
[2022-06-24] MEDS: THIAMINE 100 MG TABLET PO SCH (08:39)
[2022-06-24] MEDS: DOCUSATE SODIUM 100 MG CAPSULE PO PRN (08:39)
[2022-06-24] MEDS: ATENOLOL 25 MG TABLET PO SCH (08:40)
[2022-06-24] MEDS: CYCLOBENZAPRINE HCL 10 MG TABLET PO SCH (08:40)
[2022-06-24] MEDS: AmLODIPine BESYLATE 10 MG TABLET PO SCH (08:40)
[2022-06-24] MEDS: ASPIRIN 81 MG DR TABLET PO SCH (08:40)
[2022-06-24] MEDS: MEGESTROL ACETATE 40 MG TABLET PO SCH ×2 (08:40→21:14)
[2022-06-24] MEDS: CLOPIDOGREL BISULFATE 75 MG TABLET PO SCH (08:40)
[2022-06-24] MEDS: HydrALAZINE HCL 25 MG TABLET PO SCH ×3 (08:41→21:14)
[2022-06-24 15:43] VITALS: BP 128/66
[2022-06-24] MEDS: ACETAMINOPHEN 325 MG TABLET PO PRN (18:57)
[2022-06-24 20:13] VITALS: BP 128/58
[2022-06-24] MEDS: ATORVASTATIN CALCIUM 20 MG TABLET PO SCH (21:15)
[2022-06-25] MEDS: HEPARIN SODIUM,PORCINE 5,000 UNITS/ML VIAL SQ SCH ×4 (00:41→16:00)
[2022-06-25] MEDS: HYDROCODONE/ACETAMINOPHEN 5-325 MG TABLET PO PRN ×2 (01:24→19:22)
[2022-06-25 04:55] VITALS: BP 156/78
[2022-06-25 07:31] VITALS: BP 156/55
[2022-06-25] MEDS: CLOPIDOGREL BISULFATE 75 MG TABLET PO SCH (08:09)
[2022-06-25] MEDS: MEGESTROL ACETATE 40 MG TABLET PO SCH ×2 (08:09→20:56)
[2022-06-25] MEDS: ASPIRIN 81 MG DR TABLET PO SCH (08:09)
[2022-06-25] MEDS: HydrALAZINE HCL 25 MG TABLET PO SCH ×3 (08:09→20:56)
[2022-06-25] MEDS: AmLODIPine BESYLATE 10 MG TABLET PO SCH (08:10)
[2022-06-25] MEDS: MULTIVITAMINS, THERAPEUTIC TABLET PO SCH (08:10)
[2022-06-25] MEDS: CYCLOBENZAPRINE HCL 10 MG TABLET PO SCH (08:10)
[2022-06-25] MEDS: THIAMINE 100 MG TABLET PO SCH (08:10)
[2022-06-25 10:28] VITALS: BP 150/63
[2022-06-25] MEDS: ATENOLOL 25 MG TABLET PO SCH (10:34)
[2022-06-25 15:27] VITALS: BP 145/59
[2022-06-25 19:40] VITALS: BP 126/52
[2022-06-25] MEDS: ATORVASTATIN CALCIUM 20 MG TABLET PO SCH (20:57)
[2022-06-25] MEDS: ACETAMINOPHEN 325 MG TABLET PO PRN (20:57)
[2022-06-26] MEDS: HYDROCODONE/ACETAMINOPHEN 5-325 MG TABLET PO PRN ×2 (02:07→16:09)
[2022-06-26 05:00] VITALS: BP 138/66
[2022-06-26] MEDS: BENZONATATE 100 MG CAPSULE PO PRN ×2 (06:31→17:34)
[2022-06-26 07:15] LABS: BASOPHILS % (AUTO) 0.6 % (0.0-2.0); EOSINOPHILS % (AUTO) 2.2 % (1.0-6.0); HEMATOCRIT 33.4 % (36-46); HEMOGLOBIN 11.3 g/dL (12.0-16.0); LYMPHOCYTES # (AUTO) 1.6 K/uL (1.0-4.8); LYMPHOCYTES % (AUTO) 14.9 % (22.0-44.0); MEAN CORPUSCULAR HEMOGLOBIN 29.6 pg (26.0-34.0); MEAN CORPUSCULAR HGB CONC 33.9 G/dL (31.0-37.0); MEAN CORPUSCULAR VOLUME 87 fL (80-100); MONOCYTES # (AUTO) 1.4 K/uL (0.1-1.0); MONOCYTES % (AUTO) 13.1 % (2.0-9.0); NEUTROPHILS # (AUTO) 7.5 K/uL (1.8-7.7); NEUTROPHILS % (AUTO) 69.2 % (40.0-70.0); PLATELET COUNT (AUTO) 453 K/uL (150-450); RED BLOOD CELL COUNT(AUTO) 3.82 MIL/uL (4.00-5.20)
[2022-06-26 07:34] LABS: BILIRUBIN,TOTAL 0.9 mg/dL (0.1-1.0); CALCIUM, TOTAL 9.2 mg/dL (8.8-10.5); CREATININE 0.94 mg/dL (0.60-1.30); POTASSIUM 3.8 mmol/L (3.5-5.1); TOTAL PROTEIN, SERUM 7.2 g/dL (6.4-8.2)
[2022-06-26 08:00] VITALS: BP 131/53
[2022-06-26] MEDS: HEPARIN SODIUM,PORCINE 5,000 UNITS/ML VIAL SQ SCH ×3 (08:00→15:17)
[2022-06-26] MEDS: ASPIRIN 81 MG DR TABLET PO SCH (09:02)
[2022-06-26] MEDS: CYCLOBENZAPRINE HCL 10 MG TABLET PO SCH (09:03)
[2022-06-26] MEDS: CLOPIDOGREL BISULFATE 75 MG TABLET PO SCH (09:03)
[2022-06-26] MEDS: HydrALAZINE HCL 25 MG TABLET PO SCH ×3 (09:03→20:33)
[2022-06-26] MEDS: THIAMINE 100 MG TABLET PO SCH (09:03)
[2022-06-26] MEDS: MULTIVITAMINS, THERAPEUTIC TABLET PO SCH (09:03)
[2022-06-26] MEDS: AmLODIPine BESYLATE 10 MG TABLET PO SCH (09:03)
[2022-06-26] MEDS: MEGESTROL ACETATE 40 MG TABLET PO SCH ×2 (09:06→20:49)
[2022-06-26] MEDS: ATENOLOL 25 MG TABLET PO SCH (10:57)
[2022-06-26 15:15] VITALS: BP 134/48
[2022-06-26 20:05] VITALS: BP 145/64
[2022-06-26] MEDS: ATORVASTATIN CALCIUM 20 MG TABLET PO SCH (20:33)
[2022-06-27] MEDS: HEPARIN SODIUM,PORCINE 5,000 UNITS/ML VIAL SQ SCH ×4 (00:08→23:35)
[2022-06-27] MEDS: HYDROCODONE/ACETAMINOPHEN 5-325 MG TABLET PO PRN (01:36)
[2022-06-27 05:00] VITALS: BP 154/68
[2022-06-27 08:18] VITALS: BP 152/72
[2022-06-27] MEDS: THIAMINE 100 MG TABLET PO SCH (08:46)
[2022-06-27] MEDS: HydrALAZINE HCL 25 MG TABLET PO SCH ×3 (08:47→20:40)
[2022-06-27] MEDS: ATENOLOL 25 MG TABLET PO SCH (08:47)
[2022-06-27] MEDS: MULTIVITAMINS, THERAPEUTIC TABLET PO SCH (08:47)
[2022-06-27] MEDS: ASPIRIN 81 MG DR TABLET PO SCH (08:47)
[2022-06-27] MEDS: CYCLOBENZAPRINE HCL 10 MG TABLET PO SCH (08:47)
[2022-06-27] MEDS: AmLODIPine BESYLATE 10 MG TABLET PO SCH (08:48)
[2022-06-27] MEDS: CLOPIDOGREL BISULFATE 75 MG TABLET PO SCH (08:48)
[2022-06-27] MEDS: MEGESTROL ACETATE 40 MG TABLET PO SCH ×2 (08:48→20:40)
[2022-06-27 11:28] LABS: COVID AG,FIA SOURCE NASAL SWAB
[2022-06-27] MEDS: ACETAMINOPHEN 325 MG TABLET PO PRN (12:59)
[2022-06-27 15:39] VITALS: BP 113/54
[2022-06-27 20:05] VITALS: BP 140/60
[2022-06-27] MEDS: ATORVASTATIN CALCIUM 20 MG TABLET PO SCH (20:40)
[2022-06-28 05:59] VITALS: BP 154/59
[2022-06-28] MEDS: HEPARIN SODIUM,PORCINE 5,000 UNITS/ML VIAL SQ SCH ×3 (08:00→21:17)
[2022-06-28] MEDS: ASPIRIN 81 MG DR TABLET PO SCH (08:56)
[2022-06-28] MEDS: MEGESTROL ACETATE 40 MG TABLET PO SCH ×2 (08:56→21:15)
[2022-06-28] MEDS: AmLODIPine BESYLATE 10 MG TABLET PO SCH (08:57)
[2022-06-28] MEDS: MULTIVITAMINS, THERAPEUTIC TABLET PO SCH (08:57)
[2022-06-28] MEDS: HydrALAZINE HCL 25 MG TABLET PO SCH ×3 (08:57→21:15)
[2022-06-28] MEDS: CYCLOBENZAPRINE HCL 10 MG TABLET PO SCH (08:58)
[2022-06-28] MEDS: CLOPIDOGREL BISULFATE 75 MG TABLET PO SCH (08:58)
[2022-06-28] MEDS: THIAMINE 100 MG TABLET PO SCH (08:58)
[2022-06-28 09:10] VITALS: BP 178/73
[2022-06-28] MEDS: ATENOLOL 25 MG TABLET PO SCH (10:51)
[2022-06-28 15:21] VITALS: BP 165/75
[2022-06-28] MEDS: HYDROCODONE/ACETAMINOPHEN 5-325 MG TABLET PO PRN (16:00)
[2022-06-28] MEDS: ATORVASTATIN CALCIUM 20 MG TABLET PO SCH (21:16)
[2022-06-28 21:31] VITALS: BP 144/57
[2022-06-29 06:12] VITALS: BP 156/55
[2022-06-29] MEDS: HEPARIN SODIUM,PORCINE 5,000 UNITS/ML VIAL SQ SCH ×2 (08:00→15:35)
[2022-06-29] MEDS: AmLODIPine BESYLATE 10 MG TABLET PO SCH (08:12)
[2022-06-29] MEDS: MULTIVITAMINS, THERAPEUTIC TABLET PO SCH (08:13)
[2022-06-29] MEDS: HydrALAZINE HCL 25 MG TABLET PO SCH ×3 (08:14→20:37)
[2022-06-29] MEDS: ASPIRIN 81 MG DR TABLET PO SCH (08:14)
[2022-06-29] MEDS: CLOPIDOGREL BISULFATE 75 MG TABLET PO SCH (08:15)
[2022-06-29] MEDS: THIAMINE 100 MG TABLET PO SCH (08:15)
[2022-06-29] MEDS: CYCLOBENZAPRINE HCL 10 MG TABLET PO SCH (08:15)
[2022-06-29] MEDS: MEGESTROL ACETATE 40 MG TABLET PO SCH ×2 (08:15→20:38)
[2022-06-29 08:17] VITALS: BP 138/51
[2022-06-29] MEDS: ATENOLOL 25 MG TABLET PO SCH (09:57)
[2022-06-29] MEDS: HYDROCODONE/ACETAMINOPHEN 5-325 MG TABLET PO PRN (14:30)
[2022-06-29 16:23] VITALS: BP 118/63
[2022-06-29 20:35] VITALS: BP 144/61
[2022-06-29] MEDS: ATORVASTATIN CALCIUM 20 MG TABLET PO SCH (20:37)
[2022-06-30] MEDS: HEPARIN SODIUM,PORCINE 5,000 UNITS/ML VIAL SQ SCH ×4 (00:15→16:00)
[2022-06-30 04:20] VITALS: BP 135/55
[2022-06-30] MEDS: HYDROCODONE/ACETAMINOPHEN 5-325 MG TABLET PO PRN ×4 (06:02→19:47)
[2022-06-30 08:06] VITALS: BP 130/59
[2022-06-30] MEDS: HydrALAZINE HCL 25 MG TABLET PO SCH ×3 (09:39→21:31)
[2022-06-30] MEDS: ASPIRIN 81 MG DR TABLET PO SCH (09:39)
[2022-06-30] MEDS: AmLODIPine BESYLATE 10 MG TABLET PO SCH (09:40)
[2022-06-30] MEDS: CYCLOBENZAPRINE HCL 10 MG TABLET PO SCH (09:40)
[2022-06-30] MEDS: CLOPIDOGREL BISULFATE 75 MG TABLET PO SCH (09:40)
[2022-06-30] MEDS: MEGESTROL ACETATE 40 MG TABLET PO SCH ×2 (09:40→21:32)
[2022-06-30] MEDS: THIAMINE 100 MG TABLET PO SCH (09:40)
[2022-06-30] MEDS: MULTIVITAMINS, THERAPEUTIC TABLET PO SCH (09:40)
[2022-06-30] MEDS: ATENOLOL 25 MG TABLET PO SCH (10:00)
[2022-06-30 10:53] LABS: BASOPHILS % (AUTO) 0.8 % (0.0-2.0); EOSINOPHILS % (AUTO) 2.6 % (1.0-6.0); HEMATOCRIT 37.1 % (36-46); HEMOGLOBIN 12.3 g/dL (12.0-16.0); LYMPHOCYTES # (AUTO) 1.6 K/uL (1.0-4.8); LYMPHOCYTES % (AUTO) 14.9 % (22.0-44.0); MEAN CORPUSCULAR HGB CONC 33.3 G/dL (31.0-37.0); MEAN CORPUSCULAR VOLUME 87 fL (80-100); MONOCYTES # (AUTO) 0.9 K/uL (0.1-1.0); MONOCYTES % (AUTO) 9.1 % (2.0-9.0); NEUTROPHILS # (AUTO) 7.6 K/uL (1.8-7.7); NEUTROPHILS % (AUTO) 72.6 % (40.0-70.0); PLATELET COUNT (AUTO) 463 K/uL (150-450); RED BLOOD CELL COUNT(AUTO) 4.26 MIL/uL (4.00-5.20); RED CELL DISTRIBUTION WIDTH 14.7 % (11.5-14.5)
[2022-06-30 11:36] LABS: ALBUMIN 2.3 g/dL (3.4-5.0); BILIRUBIN,TOTAL 0.9 mg/dL (0.1-1.0); CALCIUM, TOTAL 9.3 mg/dL (8.8-10.5); CREATININE 0.99 mg/dL (0.60-1.30); TOTAL PROTEIN, SERUM 7.5 g/dL (6.4-8.2)
[2022-06-30 15:54] VITALS: BP 128/63
[2022-06-30 20:15] VITALS: BP 123/58
[2022-06-30] MEDS: ATORVASTATIN CALCIUM 20 MG TABLET PO SCH (21:31)
[2022-07-01] MEDS: HYDROCODONE/ACETAMINOPHEN 5-325 MG TABLET PO PRN ×3 (05:21→19:50)
[2022-07-01] MEDS: BENZONATATE 100 MG CAPSULE PO PRN (05:21)
[2022-07-01 05:53] VITALS: BP 130/48
[2022-07-01] MEDS: HEPARIN SODIUM,PORCINE 5,000 UNITS/ML VIAL SQ SCH ×4 (08:00→16:00)
[2022-07-01 08:16] VITALS: BP 163/70
[2022-07-01] MEDS: CYCLOBENZAPRINE HCL 10 MG TABLET PO SCH (09:06)
[2022-07-01] MEDS: ASPIRIN 81 MG DR TABLET PO SCH (09:06)
[2022-07-01] MEDS: MULTIVITAMINS, THERAPEUTIC TABLET PO SCH (09:06)
[2022-07-01] MEDS: AmLODIPine BESYLATE 10 MG TABLET PO SCH (09:07)
[2022-07-01] MEDS: ATENOLOL 25 MG TABLET PO SCH (09:07)
[2022-07-01] MEDS: THIAMINE 100 MG TABLET PO SCH (09:07)
[2022-07-01] MEDS: CLOPIDOGREL BISULFATE 75 MG TABLET PO SCH (09:07)
[2022-07-01] MEDS: HydrALAZINE HCL 25 MG TABLET PO SCH ×3 (09:18→19:51)
[2022-07-01] MEDS: MEGESTROL ACETATE 40 MG TABLET PO SCH ×2 (09:19→19:50)
[2022-07-01 16:19] VITALS: BP 174/71
[2022-07-01 17:45] VITALS: BP 170/70
[2022-07-01] MEDS: CloNIDine HCL 0.1 MG TABLET PO PRN (18:06)
[2022-07-01] MEDS: ATORVASTATIN CALCIUM 20 MG TABLET PO SCH (19:50)
[2022-07-01 20:00] VITALS: BP 150/61
[2022-07-02] MEDS: HYDROCODONE/ACETAMINOPHEN 5-325 MG TABLET PO PRN ×3 (05:56→18:32)
[2022-07-02 06:11] VITALS: BP 148/63
[2022-07-02] MEDS: HEPARIN SODIUM,PORCINE 5,000 UNITS/ML VIAL SQ SCH ×3 (08:00→16:00)
[2022-07-02 09:45] VITALS: BP 159/83
[2022-07-02] MEDS: CLOPIDOGREL BISULFATE 75 MG TABLET PO SCH (09:45)
[2022-07-02] MEDS: ATENOLOL 25 MG TABLET PO SCH (09:46)
[2022-07-02] MEDS: CYCLOBENZAPRINE HCL 10 MG TABLET PO SCH (09:46)
[2022-07-02] MEDS: THIAMINE 100 MG TABLET PO SCH (09:46)
[2022-07-02] MEDS: ASPIRIN 81 MG DR TABLET PO SCH (09:46)
[2022-07-02] MEDS: AmLODIPine BESYLATE 10 MG TABLET PO SCH (09:46)
[2022-07-02] MEDS: MULTIVITAMINS, THERAPEUTIC TABLET PO SCH (09:47)
[2022-07-02] MEDS: MEGESTROL ACETATE 40 MG TABLET PO SCH ×2 (09:47→21:12)
[2022-07-02] MEDS: HydrALAZINE HCL 25 MG TABLET PO SCH ×3 (09:47→21:12)
[2022-07-02 17:07] VITALS: BP 150/64
[2022-07-02 20:54] VITALS: BP 135/58
[2022-07-02] MEDS: ATORVASTATIN CALCIUM 20 MG TABLET PO SCH (21:12)
[2022-07-03] MEDS: HYDROCODONE/ACETAMINOPHEN 5-325 MG TABLET PO PRN ×2 (00:31→06:07)
[2022-07-03 07:29] VITALS: BP 136/54
[2022-07-03] MEDS: HEPARIN SODIUM,PORCINE 5,000 UNITS/ML VIAL SQ SCH ×4 (08:00→23:40)
[2022-07-03] MEDS: ASPIRIN 81 MG DR TABLET PO SCH (08:53)
[2022-07-03] MEDS: MEGESTROL ACETATE 40 MG TABLET PO SCH ×2 (08:54→21:25)
[2022-07-03] MEDS: HydrALAZINE HCL 25 MG TABLET PO SCH ×3 (08:54→21:25)
[2022-07-03] MEDS: AmLODIPine BESYLATE 10 MG TABLET PO SCH (08:55)
[2022-07-03] MEDS: THIAMINE 100 MG TABLET PO SCH (08:55)
[2022-07-03] MEDS: CLOPIDOGREL BISULFATE 75 MG TABLET PO SCH (08:55)
[2022-07-03] MEDS: CYCLOBENZAPRINE HCL 10 MG TABLET PO SCH (08:55)
[2022-07-03] MEDS: MULTIVITAMINS, THERAPEUTIC TABLET PO SCH (09:04)
[2022-07-03] MEDS: ATENOLOL 25 MG TABLET PO SCH (10:42)
[2022-07-03] MEDS: ACETAMINOPHEN 325 MG TABLET PO PRN ×2 (17:04→21:25)
[2022-07-03 17:12] VITALS: BP 128/62
[2022-07-03 20:57] VITALS: BP 136/57
[2022-07-03] MEDS: ATORVASTATIN CALCIUM 20 MG TABLET PO SCH (21:25)
[2022-07-04] MEDS: ACETAMINOPHEN 325 MG TABLET PO PRN (05:01)
[2022-07-04 06:00] VITALS: BP 143/58
[2022-07-04] MEDS: HEPARIN SODIUM,PORCINE 5,000 UNITS/ML VIAL SQ SCH ×3 (08:00→23:06)
[2022-07-04 08:30] VITALS: BP 147/68
[2022-07-04] MEDS: MULTIVITAMINS, THERAPEUTIC TABLET PO SCH (09:26)
[2022-07-04] MEDS: MEGESTROL ACETATE 40 MG TABLET PO SCH ×2 (09:26→20:25)
[2022-07-04] MEDS: HydrALAZINE HCL 25 MG TABLET PO SCH ×3 (09:26→20:23)
[2022-07-04] MEDS: ASPIRIN 81 MG DR TABLET PO SCH (09:26)
[2022-07-04] MEDS: CYCLOBENZAPRINE HCL 10 MG TABLET PO SCH (09:27)
[2022-07-04] MEDS: THIAMINE 100 MG TABLET PO SCH (09:27)
[2022-07-04] MEDS: AmLODIPine BESYLATE 10 MG TABLET PO SCH (09:27)
[2022-07-04] MEDS: CLOPIDOGREL BISULFATE 75 MG TABLET PO SCH (09:30)
[2022-07-04 10:16] VITALS: BP 140/65
[2022-07-04] MEDS: ATENOLOL 25 MG TABLET PO SCH (10:35)
[2022-07-04 16:00] VITALS: BP 145/71
[2022-07-04] MEDS: ATORVASTATIN CALCIUM 20 MG TABLET PO SCH (20:24)
[2022-07-05 04:47] VITALS: BP 149/69
[2022-07-05] MEDS: HEPARIN SODIUM,PORCINE 5,000 UNITS/ML VIAL SQ SCH ×3 (08:00→23:17)
[2022-07-05 08:11] VITALS: BP 146/70
[2022-07-05] MEDS: MEGESTROL ACETATE 40 MG TABLET PO SCH ×2 (09:14→20:47)
[2022-07-05] MEDS: HydrALAZINE HCL 25 MG TABLET PO SCH ×3 (09:14→20:47)
[2022-07-05] MEDS: ASPIRIN 81 MG DR TABLET PO SCH (09:15)
[2022-07-05] MEDS: THIAMINE 100 MG TABLET PO SCH (09:15)
[2022-07-05] MEDS: AmLODIPine BESYLATE 10 MG TABLET PO SCH (09:16)
[2022-07-05] MEDS: MULTIVITAMINS, THERAPEUTIC TABLET PO SCH (09:17)
[2022-07-05] MEDS: CYCLOBENZAPRINE HCL 10 MG TABLET PO SCH (09:17)
[2022-07-05] MEDS: CLOPIDOGREL BISULFATE 75 MG TABLET PO SCH (09:17)
[2022-07-05] MEDS: ATENOLOL 25 MG TABLET PO SCH (10:51)
[2022-07-05 14:08] LABS: COVID AG,FIA SOURCE NASOPHARYNGEAL
[2022-07-05 15:20] VITALS: BP 140/68
[2022-07-05] MEDS: ACETAMINOPHEN 325 MG TABLET PO PRN (18:45)
[2022-07-05] MEDS: ATORVASTATIN CALCIUM 20 MG TABLET PO SCH (20:47)
[2022-07-05 20:51] VITALS: BP 137/62
[2022-07-06] MEDS: HYDROCODONE/ACETAMINOPHEN 5-325 MG TABLET PO PRN ×2 (00:09→16:37)
[2022-07-06 04:50] VITALS: BP 157/59
[2022-07-06] MEDS: HEPARIN SODIUM,PORCINE 5,000 UNITS/ML VIAL SQ SCH ×3 (08:00→23:57)
[2022-07-06] MEDS: MULTIVITAMINS, THERAPEUTIC TABLET PO SCH ×2 (08:30→09:47)
[2022-07-06] MEDS: ASPIRIN 81 MG DR TABLET PO SCH ×2 (09:00→09:48)
[2022-07-06] MEDS: THIAMINE 100 MG TABLET PO SCH ×2 (09:00→09:46)
[2022-07-06] MEDS: MEGESTROL ACETATE 40 MG TABLET PO SCH ×3 (09:00→21:05)
[2022-07-06] MEDS: CYCLOBENZAPRINE HCL 10 MG TABLET PO SCH ×2 (09:00→09:47)
[2022-07-06 09:30] VITALS: BP 149/72
[2022-07-06] MEDS: CLOPIDOGREL BISULFATE 75 MG TABLET PO SCH (09:46)
[2022-07-06] MEDS: HydrALAZINE HCL 25 MG TABLET PO SCH ×3 (09:46→21:06)
[2022-07-06] MEDS: AmLODIPine BESYLATE 10 MG TABLET PO SCH (09:46)
[2022-07-06] MEDS: ATENOLOL 25 MG TABLET PO SCH (09:47)
[2022-07-06 16:26] VITALS: BP 127/59
[2022-07-06] MEDS: ACETAMINOPHEN 325 MG TABLET PO PRN (21:05)
[2022-07-06] MEDS: ATORVASTATIN CALCIUM 20 MG TABLET PO SCH (21:05)
[2022-07-06 21:30] VITALS: BP 152/61
[2022-07-07] MEDS: DOCUSATE SODIUM 100 MG CAPSULE PO PRN (05:55)
[2022-07-07] MEDS: ACETAMINOPHEN 325 MG TABLET PO PRN (05:55)
[2022-07-07 06:15] VITALS: BP 144/63
[2022-07-07 07:35] VITALS: BP 136/68
[2022-07-07] MEDS: HEPARIN SODIUM,PORCINE 5,000 UNITS/ML VIAL SQ SCH ×3 (08:00→23:33)
[2022-07-07] MEDS: THIAMINE 100 MG TABLET PO SCH (10:58)
[2022-07-07] MEDS: HydrALAZINE HCL 25 MG TABLET PO SCH ×3 (10:58→20:39)
[2022-07-07] MEDS: ATENOLOL 25 MG TABLET PO SCH (10:59)
[2022-07-07] MEDS: AmLODIPine BESYLATE 10 MG TABLET PO SCH (10:59)
[2022-07-07] MEDS: CLOPIDOGREL BISULFATE 75 MG TABLET PO SCH (10:59)
[2022-07-07] MEDS: CYCLOBENZAPRINE HCL 10 MG TABLET PO SCH (10:59)
[2022-07-07] MEDS: MULTIVITAMINS, THERAPEUTIC TABLET PO SCH (10:59)
[2022-07-07] MEDS: MEGESTROL ACETATE 40 MG TABLET PO SCH ×3 (11:00→21:00)
[2022-07-07] MEDS: ASPIRIN 81 MG DR TABLET PO SCH (11:00)
[2022-07-07 15:01] LABS: BASOPHILS % (AUTO) 1.2 % (0.0-2.0); HEMATOCRIT 38.8 % (36-46); HEMOGLOBIN 12.9 g/dL (12.0-16.0); LYMPHOCYTES # (AUTO) 1.2 K/uL (1.0-4.8); LYMPHOCYTES % (AUTO) 15.3 % (22.0-44.0); MEAN CORPUSCULAR HEMOGLOBIN 28.8 pg (26.0-34.0); MEAN CORPUSCULAR HGB CONC 33.3 G/dL (31.0-37.0); MEAN CORPUSCULAR VOLUME 87 fL (80-100); MONOCYTES # (AUTO) 0.7 K/uL (0.1-1.0); MONOCYTES % (AUTO) 8.9 % (2.0-9.0); NEUTROPHILS # (AUTO) 5.7 K/uL (1.8-7.7); NEUTROPHILS % (AUTO) 72.6 % (40.0-70.0); PLATELET COUNT (AUTO) 497 K/uL (150-450); RED BLOOD CELL COUNT(AUTO) 4.48 MIL/uL (4.00-5.20); RED CELL DISTRIBUTION WIDTH 15.2 % (11.5-14.5)
[2022-07-07 15:22] LABS: ANION GAP 8 mmol/L (8-16); CALCIUM, TOTAL 9.4 mg/dL (8.8-10.5); CARBON DIOXIDE 22 mmol/L (22-29); CHLORIDE 103 mmol/L (98-107); CREATININE 0.74 mg/dL (0.60-1.30); GLUCOSE,RANDOM 112 mg/dL (70-110); POTASSIUM 3.4 mmol/L (3.5-5.1); SODIUM SERUM 133 mmol/L (136-145); UREA NITROGEN, BLOOD 20 mg/dL (7-18)
[2022-07-07 15:24] LABS: GLOMERULAR FILTR. RATE CALC > 60 mL/min (>60)
[2022-07-07 15:30] LABS: ALANINE AMINOTRANSFERASE 207 U/L (12-78); ALBUMIN 2.3 g/dL (3.4-5.0); ASPARTATE AMINOTRANSFERASE 169 U/L (15-37); BILIRUBIN,TOTAL 0.6 mg/dL (0.1-1.0); TOTAL PROTEIN, SERUM 7.5 g/dL (6.4-8.2)
[2022-07-07 15:41] LABS: ALKALINE PHOSPHATASE 1419 U/L (46-116)
[2022-07-07 15:57] VITALS: BP 150/73
[2022-07-07] MEDS ORDERED: POTASSIUM CHLORIDE 20 MEQ ER TABLET PO ONE (16:45)
[2022-07-07] MEDS: HYDROCODONE/ACETAMINOPHEN 5-325 MG TABLET PO PRN ×2 (17:00→20:40)
[2022-07-07 19:50] VITALS: BP 136/68
[2022-07-07] MEDS: ATORVASTATIN CALCIUM 20 MG TABLET PO SCH (20:40)
[2022-07-08 04:33] VITALS: BP 145/72
[2022-07-08 08:13] VITALS: BP 162/72
[2022-07-08] MEDS: CLOPIDOGREL BISULFATE 75 MG TABLET PO SCH (08:27)
[2022-07-08] MEDS: CYCLOBENZAPRINE HCL 10 MG TABLET PO SCH (08:27)
[2022-07-08] MEDS: DOCUSATE SODIUM 100 MG CAPSULE PO PRN ×2 (08:27→22:17)
[2022-07-08] MEDS: MEGESTROL ACETATE 40 MG TABLET PO SCH ×2 (08:27→20:28)
[2022-07-08] MEDS: AmLODIPine BESYLATE 10 MG TABLET PO SCH (08:27)
[2022-07-08] MEDS: HEPARIN SODIUM,PORCINE 5,000 UNITS/ML VIAL SQ SCH ×3 (08:27→23:28)
[2022-07-08] MEDS: THIAMINE 100 MG TABLET PO SCH (08:27)
[2022-07-08] MEDS: ASPIRIN 81 MG DR TABLET PO SCH (08:28)
[2022-07-08] MEDS: MULTIVITAMINS, THERAPEUTIC TABLET PO SCH (08:28)
[2022-07-08] MEDS: HydrALAZINE HCL 25 MG TABLET PO SCH ×3 (08:28→20:20)
[2022-07-08] MEDS: ATENOLOL 25 MG TABLET PO SCH (08:28)
[2022-07-08] MEDS: HYDROCODONE/ACETAMINOPHEN 5-325 MG TABLET PO PRN (10:19)
[2022-07-08 16:28] VITALS: BP 133/65
[2022-07-08 20:08] VITALS: BP 153/60
[2022-07-08] MEDS: ATORVASTATIN CALCIUM 20 MG TABLET PO SCH (20:26)
[2022-07-08] MEDS ORDERED: CYCLOBENZAPRINE HCL 10 MG TABLET PO ONE (21:00)
[2022-07-09 07:27] VITALS: BP 150/74
[2022-07-09] MEDS: HEPARIN SODIUM,PORCINE 5,000 UNITS/ML VIAL SQ SCH ×3 (08:00→23:59)
[2022-07-09 08:57] VITALS: BP 169/71
[2022-07-09] MEDS: THIAMINE 100 MG TABLET PO SCH (09:10)
[2022-07-09] MEDS: HydrALAZINE HCL 25 MG TABLET PO SCH ×3 (09:11→20:49)
[2022-07-09] MEDS: CLOPIDOGREL BISULFATE 75 MG TABLET PO SCH (09:11)
[2022-07-09] MEDS: ASPIRIN 81 MG DR TABLET PO SCH (09:11)
[2022-07-09] MEDS: AmLODIPine BESYLATE 10 MG TABLET PO SCH (09:11)
[2022-07-09] MEDS: DOCUSATE SODIUM 100 MG CAPSULE PO PRN (09:12)
[2022-07-09] MEDS: MULTIVITAMINS, THERAPEUTIC TABLET PO SCH (09:12)
[2022-07-09] MEDS: MEGESTROL ACETATE 40 MG TABLET PO SCH ×2 (09:12→20:50)
[2022-07-09] MEDS: ATENOLOL 25 MG TABLET PO SCH (09:12)
[2022-07-09 15:50] VITALS: BP 148/62
[2022-07-09] MEDS: CYCLOBENZAPRINE HCL 10 MG TABLET PO SCH (16:46)
[2022-07-09 20:29] VITALS: BP 148/85
[2022-07-09] MEDS: ATORVASTATIN CALCIUM 20 MG TABLET PO SCH (20:49)
[2022-07-10 05:00] VITALS: BP 111/56
[2022-07-10] MEDS: HEPARIN SODIUM,PORCINE 5,000 UNITS/ML VIAL SQ SCH ×2 (08:00→16:00)
[2022-07-10] MEDS: AmLODIPine BESYLATE 10 MG TABLET PO SCH (08:00)
[2022-07-10] MEDS: MULTIVITAMINS, THERAPEUTIC TABLET PO SCH (08:30)
[2022-07-10] MEDS: ASPIRIN 81 MG DR TABLET PO SCH (09:00)
[2022-07-10] MEDS: THIAMINE 100 MG TABLET PO SCH (09:00)
[2022-07-10] MEDS: HydrALAZINE HCL 25 MG TABLET PO SCH ×3 (09:00→21:00)
[2022-07-10] MEDS: CLOPIDOGREL BISULFATE 75 MG TABLET PO SCH (09:00)
[2022-07-10] MEDS: CYCLOBENZAPRINE HCL 10 MG TABLET PO SCH (09:00)
[2022-07-10] MEDS: MEGESTROL ACETATE 40 MG TABLET PO SCH ×2 (09:00→21:00)
[2022-07-10] MEDS: ATENOLOL 25 MG TABLET PO SCH (10:00)
[2022-07-10 20:45] VITALS: BP 123/75
[2022-07-10] MEDS: ATORVASTATIN CALCIUM 20 MG TABLET PO SCH (21:00)
[2022-07-11 05:43] VITALS: BP 145/87
[2022-07-11] MEDS: HEPARIN SODIUM,PORCINE 5,000 UNITS/ML VIAL SQ SCH ×4 (08:00→23:06)
[2022-07-11 08:06] VITALS: BP 168/76
[2022-07-11] MEDS: MULTIVITAMINS, THERAPEUTIC TABLET PO SCH (08:47)
[2022-07-11] MEDS: AmLODIPine BESYLATE 10 MG TABLET PO SCH (08:47)
[2022-07-11] MEDS: HydrALAZINE HCL 25 MG TABLET PO SCH ×3 (08:48→20:48)
[2022-07-11] MEDS: ASPIRIN 81 MG DR TABLET PO SCH (08:48)
[2022-07-11] MEDS: THIAMINE 100 MG TABLET PO SCH (08:48)
[2022-07-11] MEDS: CYCLOBENZAPRINE HCL 10 MG TABLET PO SCH (08:48)
[2022-07-11] MEDS: CLOPIDOGREL BISULFATE 75 MG TABLET PO SCH (08:48)
[2022-07-11] MEDS: MEGESTROL ACETATE 40 MG TABLET PO SCH ×2 (08:49→20:48)
[2022-07-11] MEDS: ATENOLOL 25 MG TABLET PO SCH (10:41)
[2022-07-11 15:29] VITALS: BP 141/76
[2022-07-11] MEDS: HYDROCODONE/ACETAMINOPHEN 5-325 MG TABLET PO PRN (15:37)
[2022-07-11 20:39] VITALS: BP 131/52
[2022-07-11] MEDS: ATORVASTATIN CALCIUM 20 MG TABLET PO SCH (20:48)
[2022-07-12 05:39] VITALS: BP 134/70
[2022-07-12] MEDS ORDERED: MORPHINE SULFATE 2 MG/ML SYRINGE IVP ONE (06:45)
[2022-07-12 07:17] VITALS: BP 158/64
[2022-07-12] MEDS: HEPARIN SODIUM,PORCINE 5,000 UNITS/ML VIAL SQ SCH ×3 (08:00→23:39)
[2022-07-12] MEDS: ASPIRIN 81 MG DR TABLET PO SCH (08:47)
[2022-07-12] MEDS: CLOPIDOGREL BISULFATE 75 MG TABLET PO SCH (08:49)
[2022-07-12] MEDS: MULTIVITAMINS, THERAPEUTIC TABLET PO SCH (08:49)
[2022-07-12] MEDS: HydrALAZINE HCL 25 MG TABLET PO SCH ×3 (08:49→20:54)
[2022-07-12] MEDS: AmLODIPine BESYLATE 10 MG TABLET PO SCH (08:49)
[2022-07-12] MEDS: CYCLOBENZAPRINE HCL 10 MG TABLET PO SCH (08:49)
[2022-07-12] MEDS: MEGESTROL ACETATE 40 MG TABLET PO SCH ×2 (08:50→20:55)
[2022-07-12] MEDS: THIAMINE 100 MG TABLET PO SCH (08:51)
[2022-07-12] MEDS: ATENOLOL 25 MG TABLET PO SCH (10:00)
[2022-07-12 15:35] VITALS: BP 148/74
[2022-07-12] MEDS: MORPHINE SULFATE 2 MG/ML SYRINGE IVP PRN (17:52)
[2022-07-12 20:52] VITALS: BP 161/77
[2022-07-12] MEDS: ACETAMINOPHEN 325 MG TABLET PO PRN (20:54)
[2022-07-12] MEDS: ATORVASTATIN CALCIUM 20 MG TABLET PO SCH (20:54)
[2022-07-13 05:00] VITALS: BP 165/77
[2022-07-13] MEDS: HYDROCODONE/ACETAMINOPHEN 5-325 MG TABLET PO PRN ×2 (06:10→13:12)
[2022-07-13] MEDS: CloNIDine HCL 0.1 MG TABLET PO PRN (07:07)
[2022-07-13 07:29] VITALS: BP 133/70
[2022-07-13] MEDS: HEPARIN SODIUM,PORCINE 5,000 UNITS/ML VIAL SQ SCH ×2 (08:00→16:00)
[2022-07-13] MEDS: AmLODIPine BESYLATE 10 MG TABLET PO SCH (08:38)
[2022-07-13] MEDS: MULTIVITAMINS, THERAPEUTIC TABLET PO SCH (08:39)
[2022-07-13] MEDS: ASPIRIN 81 MG DR TABLET PO SCH (08:40)
[2022-07-13] MEDS: HydrALAZINE HCL 25 MG TABLET PO SCH ×3 (08:40→20:02)
[2022-07-13] MEDS: CYCLOBENZAPRINE HCL 10 MG TABLET PO SCH (08:40)
[2022-07-13] MEDS: THIAMINE 100 MG TABLET PO SCH (08:41)
[2022-07-13] MEDS: CLOPIDOGREL BISULFATE 75 MG TABLET PO SCH (08:41)
[2022-07-13] MEDS: MEGESTROL ACETATE 40 MG TABLET PO SCH ×2 (08:41→20:02)
[2022-07-13] MEDS: ATENOLOL 25 MG TABLET PO SCH (08:42)
[2022-07-13] MEDS: MAGNESIUM HYDROXIDE SUSPENSION 30 ML UDCUP PO PRN (08:45)
[2022-07-13 15:40] VITALS: BP 108/49
[2022-07-13] MEDS: ACETAMINOPHEN 325 MG TABLET PO PRN (16:06)
[2022-07-13 19:52] VITALS: BP 125/49
[2022-07-13] MEDS: ATORVASTATIN CALCIUM 20 MG TABLET PO SCH (20:02)
[2022-07-14 06:20] VITALS: BP 162/52
[2022-07-14] MEDS: ACETAMINOPHEN 325 MG TABLET PO PRN (06:22)
[2022-07-14] MEDS: HEPARIN SODIUM,PORCINE 5,000 UNITS/ML VIAL SQ SCH ×4 (08:00→23:34)
[2022-07-14] MEDS: ASPIRIN 81 MG DR TABLET PO SCH (08:27)
[2022-07-14] MEDS: AmLODIPine BESYLATE 10 MG TABLET PO SCH (08:27)
[2022-07-14] MEDS: CYCLOBENZAPRINE HCL 10 MG TABLET PO SCH (08:28)
[2022-07-14] MEDS: MULTIVITAMINS, THERAPEUTIC TABLET PO SCH (08:28)
[2022-07-14] MEDS: HydrALAZINE HCL 25 MG TABLET PO SCH ×3 (08:30→20:01)
[2022-07-14] MEDS: CLOPIDOGREL BISULFATE 75 MG TABLET PO SCH (08:30)
[2022-07-14] MEDS: THIAMINE 100 MG TABLET PO SCH (08:30)
[2022-07-14] MEDS: MEGESTROL ACETATE 40 MG TABLET PO SCH ×2 (08:34→20:00)
[2022-07-14 10:28] VITALS: BP 160/49
[2022-07-14] MEDS: ATENOLOL 25 MG TABLET PO SCH (10:32)
[2022-07-14 19:50] VITALS: BP 147/87
[2022-07-14] MEDS: ATORVASTATIN CALCIUM 20 MG TABLET PO SCH (20:00)
[2022-07-14 20:17] LABS: GLUCOMETER DEV NAME(LOC) 6N.1; GLUCOSE,POINT OF CARE 113 MG/DL (70-110)
[2022-07-15 04:49] VITALS: BP 156/64
[2022-07-15] MEDS: CLOPIDOGREL BISULFATE 75 MG TABLET PO SCH (08:23)
[2022-07-15] MEDS: ASPIRIN 81 MG DR TABLET PO SCH (08:24)
[2022-07-15] MEDS: THIAMINE 100 MG TABLET PO SCH (08:24)
[2022-07-15] MEDS: CYCLOBENZAPRINE HCL 10 MG TABLET PO SCH (08:24)
[2022-07-15] MEDS: ATENOLOL 25 MG TABLET PO SCH (08:24)
[2022-07-15 08:25] VITALS: BP 156/64
[2022-07-15] MEDS: DOCUSATE SODIUM 100 MG CAPSULE PO PRN (08:25)
[2022-07-15] MEDS: HEPARIN SODIUM,PORCINE 5,000 UNITS/ML VIAL SQ SCH ×3 (08:25→23:11)
[2022-07-15] MEDS: AmLODIPine BESYLATE 10 MG TABLET PO SCH (08:25)
[2022-07-15] MEDS: HydrALAZINE HCL 25 MG TABLET PO SCH ×3 (08:25→21:00)
[2022-07-15] MEDS: MULTIVITAMINS, THERAPEUTIC TABLET PO SCH (08:26)
[2022-07-15] MEDS: MEGESTROL ACETATE 40 MG TABLET PO SCH ×2 (08:30→21:00)
[2022-07-15 17:00] VITALS: BP 132/63
[2022-07-15] MEDS: ATORVASTATIN CALCIUM 20 MG TABLET PO SCH (21:00)
[2022-07-16] MEDS: ACETAMINOPHEN 325 MG TABLET PO PRN (01:38)
[2022-07-16 06:54] LABS: RED BLOOD CELL COUNT(AUTO) 3.85 MIL/uL (4.00-5.20)
[2022-07-16 06:55] LABS: BASOPHILS % (AUTO) 1.2 % (0.0-2.0); EOSINOPHILS % (AUTO) 2.1 % (1.0-6.0); HEMATOCRIT 33.5 % (36-46); HEMOGLOBIN 11.3 g/dL (12.0-16.0); LYMPHOCYTES # (AUTO) 2.2 K/uL (1.0-4.8); LYMPHOCYTES % (AUTO) 24.6 % (22.0-44.0); MEAN CORPUSCULAR HEMOGLOBIN 29.4 pg (26.0-34.0); MEAN CORPUSCULAR HGB CONC 33.8 G/dL (31.0-37.0); MEAN CORPUSCULAR VOLUME 87 fL (80-100); MONOCYTES # (AUTO) 0.8 K/uL (0.1-1.0); MONOCYTES % (AUTO) 9.1 % (2.0-9.0); NEUTROPHILS # (AUTO) 5.7 K/uL (1.8-7.7); PLATELET COUNT (AUTO) 443 K/uL (150-450); RED CELL DISTRIBUTION WIDTH 15.7 % (11.5-14.5)
[2022-07-16 07:03] LABS: ANION GAP 5 mmol/L (8-16); CARBON DIOXIDE 28 mmol/L (22-29); CHLORIDE 106 mmol/L (98-107); CREATININE 0.72 mg/dL (0.60-1.30); GLOMERULAR FILTR. RATE CALC > 60 mL/min (>60); GLUCOSE,RANDOM 91 mg/dL (70-110); POTASSIUM 3.4 mmol/L (3.5-5.1); SODIUM SERUM 139 mmol/L (136-145); UREA NITROGEN, BLOOD 19 mg/dL (7-18)
[2022-07-16 08:14] VITALS: BP 136/71
[2022-07-16] MEDS: HydrALAZINE HCL 25 MG TABLET PO SCH ×3 (08:51→20:19)
[2022-07-16] MEDS: MULTIVITAMINS, THERAPEUTIC TABLET PO SCH (08:51)
[2022-07-16] MEDS: ASPIRIN 81 MG DR TABLET PO SCH (08:52)
[2022-07-16] MEDS: DOCUSATE SODIUM 100 MG CAPSULE PO PRN (08:52)
[2022-07-16] MEDS: CLOPIDOGREL BISULFATE 75 MG TABLET PO SCH (08:52)
[2022-07-16] MEDS: CYCLOBENZAPRINE HCL 10 MG TABLET PO SCH (08:52)
[2022-07-16] MEDS: ATENOLOL 25 MG TABLET PO SCH (08:53)
[2022-07-16] MEDS: THIAMINE 100 MG TABLET PO SCH (08:53)
[2022-07-16] MEDS: AmLODIPine BESYLATE 10 MG TABLET PO SCH (08:53)
[2022-07-16] MEDS: HEPARIN SODIUM,PORCINE 5,000 UNITS/ML VIAL SQ SCH ×3 (08:55→23:48)
[2022-07-16] MEDS: MEGESTROL ACETATE 40 MG TABLET PO SCH ×2 (09:04→20:20)
[2022-07-16 16:15] VITALS: BP 148/59
[2022-07-16] MEDS: MAGNESIUM HYDROXIDE SUSPENSION 30 ML UDCUP PO PRN (16:30)
[2022-07-16 19:55] VITALS: BP 148/55
[2022-07-16] MEDS: ATORVASTATIN CALCIUM 20 MG TABLET PO SCH (20:19)
[2022-07-17] MEDS: HYDROCODONE/ACETAMINOPHEN 5-325 MG TABLET PO PRN (00:14)
[2022-07-17 04:27] VITALS: BP 147/61
[2022-07-17] MEDS: AmLODIPine BESYLATE 10 MG TABLET PO SCH (08:13)
[2022-07-17] MEDS: THIAMINE 100 MG TABLET PO SCH (08:13)
[2022-07-17] MEDS: CLOPIDOGREL BISULFATE 75 MG TABLET PO SCH (08:13)
[2022-07-17] MEDS: CYCLOBENZAPRINE HCL 10 MG TABLET PO SCH (08:14)
[2022-07-17] MEDS: MULTIVITAMINS, THERAPEUTIC TABLET PO SCH (08:14)
[2022-07-17] MEDS: ASPIRIN 81 MG DR TABLET PO SCH (08:14)
[2022-07-17] MEDS: HydrALAZINE HCL 25 MG TABLET PO SCH ×3 (08:15→22:26)
[2022-07-17] MEDS: MEGESTROL ACETATE 40 MG TABLET PO SCH ×2 (08:15→22:28)
[2022-07-17] MEDS: HEPARIN SODIUM,PORCINE 5,000 UNITS/ML VIAL SQ SCH ×3 (08:18→16:00)
[2022-07-17 08:45] VITALS: BP 164/67
[2022-07-17] MEDS: ATENOLOL 25 MG TABLET PO SCH (10:26)
[2022-07-17 17:31] VITALS: BP 137/68
[2022-07-17 20:18] VITALS: BP 149/65
[2022-07-17] MEDS: ATORVASTATIN CALCIUM 20 MG TABLET PO SCH (22:27)
[2022-07-18 05:47] VITALS: BP 133/63
[2022-07-18 07:16] VITALS: BP 147/64
[2022-07-18] MEDS: AmLODIPine BESYLATE 10 MG TABLET PO SCH (08:00)
[2022-07-18] MEDS: HEPARIN SODIUM,PORCINE 5,000 UNITS/ML VIAL SQ SCH ×3 (08:00→16:00)
[2022-07-18] MEDS: MULTIVITAMINS, THERAPEUTIC TABLET PO SCH (08:30)
[2022-07-18] MEDS: CLOPIDOGREL BISULFATE 75 MG TABLET PO SCH (09:00)
[2022-07-18] MEDS: THIAMINE 100 MG TABLET PO SCH (09:00)
[2022-07-18] MEDS: CYCLOBENZAPRINE HCL 10 MG TABLET PO SCH (09:00)
[2022-07-18] MEDS: MEGESTROL ACETATE 40 MG TABLET PO SCH ×2 (09:00→20:54)
[2022-07-18] MEDS: ASPIRIN 81 MG DR TABLET PO SCH (09:00)
[2022-07-18] MEDS: HydrALAZINE HCL 25 MG TABLET PO SCH ×3 (09:00→20:54)
[2022-07-18] MEDS: ATENOLOL 25 MG TABLET PO SCH (10:00)
[2022-07-18 16:00] VITALS: BP 121/64
[2022-07-18 20:15] VITALS: BP 138/54
[2022-07-18] MEDS: ATORVASTATIN CALCIUM 20 MG TABLET PO SCH (20:54)
[2022-07-18] MEDS: ZOLPIDEM TARTRATE 5 MG TABLET PO PRN (20:54)
[2022-07-19 04:52] VITALS: BP 145/55
[2022-07-19] MEDS: BISACODYL 10 MG RECTAL RECTAL SUPPOSITORY PR PRN (06:13)
[2022-07-19 07:45] VITALS: BP 160/62
[2022-07-19] MEDS: HEPARIN SODIUM,PORCINE 5,000 UNITS/ML VIAL SQ SCH ×4 (08:00→23:25)
[2022-07-19] MEDS: HYDROCODONE/ACETAMINOPHEN 5-325 MG TABLET PO PRN ×2 (08:04→15:42)
[2022-07-19] MEDS: THIAMINE 100 MG TABLET PO SCH (08:24)
[2022-07-19] MEDS: CLOPIDOGREL BISULFATE 75 MG TABLET PO SCH (08:24)
[2022-07-19] MEDS: AmLODIPine BESYLATE 10 MG TABLET PO SCH (08:24)
[2022-07-19] MEDS: MULTIVITAMINS, THERAPEUTIC TABLET PO SCH (08:24)
[2022-07-19] MEDS: ASPIRIN 81 MG DR TABLET PO SCH (08:24)
[2022-07-19] MEDS: HydrALAZINE HCL 25 MG TABLET PO SCH ×3 (08:24→20:54)
[2022-07-19] MEDS: CYCLOBENZAPRINE HCL 10 MG TABLET PO SCH (08:24)
[2022-07-19] MEDS: MEGESTROL ACETATE 40 MG TABLET PO SCH ×2 (08:25→20:55)
[2022-07-19] MEDS: ATENOLOL 25 MG TABLET PO SCH (10:41)
[2022-07-19 20:09] VITALS: BP 151/68
[2022-07-19] MEDS: ATORVASTATIN CALCIUM 20 MG TABLET PO SCH (20:54)
[2022-07-19] MEDS: ZOLPIDEM TARTRATE 5 MG TABLET PO PRN (20:55)
[2022-07-20 04:46] VITALS: BP 165/75
[2022-07-20 06:31] LABS: BASOPHILS % (AUTO) 0.6 % (0.0-2.0); EOSINOPHILS % (AUTO) 1.2 % (1.0-6.0); HEMOGLOBIN 12.1 g/dL (12.0-16.0); LYMPHOCYTES # (AUTO) 1.5 K/uL (1.0-4.8); LYMPHOCYTES % (AUTO) 10.7 % (22.0-44.0); MEAN CORPUSCULAR HEMOGLOBIN 29.7 pg (26.0-34.0); MEAN CORPUSCULAR HGB CONC 33.7 G/dL (31.0-37.0); MEAN CORPUSCULAR VOLUME 88 fL (80-100); MONOCYTES # (AUTO) 1.2 K/uL (0.1-1.0); MONOCYTES % (AUTO) 8.5 % (2.0-9.0); NEUTROPHILS # (AUTO) 10.7 K/uL (1.8-7.7); PLATELET COUNT (AUTO) 447 K/uL (150-450); RED BLOOD CELL COUNT(AUTO) 4.09 MIL/uL (4.00-5.20); RED CELL DISTRIBUTION WIDTH 16.3 % (11.5-14.5)
[2022-07-20 07:25] LABS: ALANINE AMINOTRANSFERASE 325 U/L (12-78); ALBUMIN 2.8 g/dL (3.4-5.0); ANION GAP 10 mmol/L (8-16); ASPARTATE AMINOTRANSFERASE 191 U/L (15-37); BILIRUBIN,TOTAL 0.9 mg/dL (0.1-1.0); CALCIUM, TOTAL 9.5 mg/dL (8.8-10.5); CARBON DIOXIDE 24 mmol/L (22-29); CHLORIDE 102 mmol/L (98-107); CREATININE 0.75 mg/dL (0.60-1.30); GLOMERULAR FILTR. RATE CALC > 60 mL/min (>60); GLUCOSE,RANDOM 89 mg/dL (70-110); POTASSIUM 4.3 mmol/L (3.5-5.1); SODIUM SERUM 136 mmol/L (136-145); TOTAL PROTEIN, SERUM 7.2 g/dL (6.4-8.2); UREA NITROGEN, BLOOD 16 mg/dL (7-18)
[2022-07-20 07:48] LABS: ALKALINE PHOSPHATASE 1001 U/L (46-116)
[2022-07-20] MEDS: HEPARIN SODIUM,PORCINE 5,000 UNITS/ML VIAL SQ SCH ×2 (08:00→16:00)
[2022-07-20 08:32] VITALS: BP 154/58
[2022-07-20] MEDS: CYCLOBENZAPRINE HCL 10 MG TABLET PO SCH (09:04)
[2022-07-20] MEDS: AmLODIPine BESYLATE 10 MG TABLET PO SCH (09:04)
[2022-07-20] MEDS: MULTIVITAMINS, THERAPEUTIC TABLET PO SCH (09:04)
[2022-07-20] MEDS: HYDROCODONE/ACETAMINOPHEN 5-325 MG TABLET PO PRN ×3 (09:04→21:49)
[2022-07-20] MEDS: ASPIRIN 81 MG DR TABLET PO SCH (09:04)
[2022-07-20] MEDS: THIAMINE 100 MG TABLET PO SCH (09:04)
[2022-07-20] MEDS: CLOPIDOGREL BISULFATE 75 MG TABLET PO SCH (09:04)
[2022-07-20] MEDS: HydrALAZINE HCL 25 MG TABLET PO SCH ×3 (09:05→20:44)
[2022-07-20] MEDS: ATENOLOL 25 MG TABLET PO SCH (09:05)
[2022-07-20] MEDS: MEGESTROL ACETATE 40 MG TABLET PO SCH ×2 (10:12→20:45)
[2022-07-20 15:37] VITALS: BP 132/65
[2022-07-20] MEDS: ACETAMINOPHEN 325 MG TABLET PO PRN (18:22)
[2022-07-20 20:02] VITALS: BP 142/64
[2022-07-20] MEDS: ATORVASTATIN CALCIUM 20 MG TABLET PO SCH (20:44)
[2022-07-20] MEDS: ZOLPIDEM TARTRATE 5 MG TABLET PO PRN (21:49)
[2022-07-21 04:51] VITALS: BP 153/72
[2022-07-21] MEDS: HYDROCODONE/ACETAMINOPHEN 5-325 MG TABLET PO PRN ×2 (04:52→22:55)
[2022-07-21 06:57] LABS: BASOPHILS % (AUTO) 0.8 % (0.0-2.0); EOSINOPHILS % (AUTO) 4.1 % (1.0-6.0); HEMATOCRIT 33.2 % (36-46); HEMOGLOBIN 10.9 g/dL (12.0-16.0); LYMPHOCYTES # (AUTO) 1.8 K/uL (1.0-4.8); LYMPHOCYTES % (AUTO) 15.6 % (22.0-44.0); MEAN CORPUSCULAR HEMOGLOBIN 29.2 pg (26.0-34.0); MEAN CORPUSCULAR HGB CONC 32.9 G/dL (31.0-37.0); MEAN CORPUSCULAR VOLUME 89 fL (80-100); NEUTROPHILS % (AUTO) 70.5 % (40.0-70.0); PLATELET COUNT (AUTO) 427 K/uL (150-450); RED BLOOD CELL COUNT(AUTO) 3.75 MIL/uL (4.00-5.20); RED CELL DISTRIBUTION WIDTH 16.6 % (11.5-14.5)
[2022-07-21 07:44] LABS: ALANINE AMINOTRANSFERASE 299 U/L (12-78); ALBUMIN 2.6 g/dL (3.4-5.0); ALKALINE PHOSPHATASE 996 U/L (46-116); ANION GAP 8 mmol/L (8-16); ASPARTATE AMINOTRANSFERASE 170 U/L (15-37); BILIRUBIN,TOTAL 0.8 mg/dL (0.1-1.0); CALCIUM, TOTAL 8.7 mg/dL (8.8-10.5); CARBON DIOXIDE 24 mmol/L (22-29); CHLORIDE 104 mmol/L (98-107); CREATININE 0.73 mg/dL (0.60-1.30); GLOMERULAR FILTR. RATE CALC > 60 mL/min (>60); GLUCOSE,RANDOM 109 mg/dL (70-110); POTASSIUM 3.9 mmol/L (3.5-5.1); SODIUM SERUM 136 mmol/L (136-145); UREA NITROGEN, BLOOD 17 mg/dL (7-18)
[2022-07-21 07:50] VITALS: BP 138/62
[2022-07-21] MEDS: HEPARIN SODIUM,PORCINE 5,000 UNITS/ML VIAL SQ SCH ×4 (08:00→22:55)
[2022-07-21] MEDS: HydrALAZINE HCL 25 MG TABLET PO SCH ×3 (09:13→20:19)
[2022-07-21] MEDS: ATENOLOL 25 MG TABLET PO SCH (09:13)
[2022-07-21] MEDS: MEGESTROL ACETATE 40 MG TABLET PO SCH ×2 (09:13→20:20)
[2022-07-21] MEDS: MULTIVITAMINS, THERAPEUTIC TABLET PO SCH (09:13)
[2022-07-21] MEDS: AmLODIPine BESYLATE 10 MG TABLET PO SCH (09:14)
[2022-07-21] MEDS: THIAMINE 100 MG TABLET PO SCH (09:14)
[2022-07-21] MEDS: CYCLOBENZAPRINE HCL 10 MG TABLET PO SCH (09:14)
[2022-07-21] MEDS: CLOPIDOGREL BISULFATE 75 MG TABLET PO SCH (09:14)
[2022-07-21] MEDS: ASPIRIN 81 MG DR TABLET PO SCH (09:14)
[2022-07-21 10:38] LABS: APPEARANCE,URINE HAZY (CLEAR); BILIRUBIN,URINE NEGATIVE (NEGATIVE); GLUCOSE, URINE (UA) NEGATIVE (NEGATIVE); KETONES,URINE NEGATIVE (NEGATIVE); LEUKOCYTE ESTERASE ,URINE LARGE (NEGATIVE); NITRATE,URINE POSITIVE (NEGATIVE); OCCULT BLOOD,URINE TRACE (NEGATIVE); PH,URINE 5.5 (5.0-8.0); PROTEIN,URINE NEGATIVE (NEGATIVE); SPECIFIC GRAVITIY, URINE 1.011 (1.003-1.030); UROBILINOGEN,URINE <=1.0 mg/dL (<=1.0)
[2022-07-21 11:02] LABS: BACTERIA,URINE Many /HPF (None Seen); SQUAMOUS EPITHELIAL CELL,UR Few /LPF (None Seen)
[2022-07-21 11:03] LABS: MUCUS,URINE Rare LPF (None Seen)
[2022-07-21 15:24] VITALS: BP 133/76
[2022-07-21] MEDS: MORPHINE SULFATE 2 MG/ML SYRINGE IVP PRN (15:37)
[2022-07-21 19:31] VITALS: BP 133/63
[2022-07-21] MEDS: ATORVASTATIN CALCIUM 20 MG TABLET PO SCH (20:19)
[2022-07-21] MEDS: ZOLPIDEM TARTRATE 5 MG TABLET PO PRN (22:54)
[2022-07-22 04:29] VITALS: BP 137/50
[2022-07-22 06:59] LABS: BASOPHILS % (AUTO) 0.9 % (0.0-2.0); EOSINOPHILS % (AUTO) 3.1 % (1.0-6.0); HEMATOCRIT 35.4 % (36-46); HEMOGLOBIN 11.8 g/dL (12.0-16.0); LYMPHOCYTES # (AUTO) 1.9 K/uL (1.0-4.8); LYMPHOCYTES % (AUTO) 21.5 % (22.0-44.0); MEAN CORPUSCULAR HEMOGLOBIN 29.5 pg (26.0-34.0); MEAN CORPUSCULAR HGB CONC 33.5 G/dL (31.0-37.0); MEAN CORPUSCULAR VOLUME 88 fL (80-100); MONOCYTES # (AUTO) 0.7 K/uL (0.1-1.0); MONOCYTES % (AUTO) 7.6 % (2.0-9.0); NEUTROPHILS % (AUTO) 66.9 % (40.0-70.0); PLATELET COUNT (AUTO) 441 K/uL (150-450); RED BLOOD CELL COUNT(AUTO) 4.01 MIL/uL (4.00-5.20); RED CELL DISTRIBUTION WIDTH 17.1 % (11.5-14.5)
[2022-07-22 07:17] LABS: ALANINE AMINOTRANSFERASE 311 U/L (12-78); ALBUMIN 2.8 g/dL (3.4-5.0); ANION GAP 11 mmol/L (8-16); ASPARTATE AMINOTRANSFERASE 180 U/L (15-37); BILIRUBIN,TOTAL 0.8 mg/dL (0.1-1.0); CALCIUM, TOTAL 9.1 mg/dL (8.8-10.5); CARBON DIOXIDE 25 mmol/L (22-29); CHLORIDE 101 mmol/L (98-107); CREATININE 0.64 mg/dL (0.60-1.30); GLUCOSE,RANDOM 91 mg/dL (70-110); POTASSIUM 3.6 mmol/L (3.5-5.1); SODIUM SERUM 137 mmol/L (136-145); TOTAL PROTEIN, SERUM 7.3 g/dL (6.4-8.2); UREA NITROGEN, BLOOD 14 mg/dL (7-18)
[2022-07-22 07:20] LABS: GLOMERULAR FILTR. RATE CALC > 60 mL/min (>60)
[2022-07-22 07:40] LABS: ALKALINE PHOSPHATASE 1056 U/L (46-116)
[2022-07-22 08:00] VITALS: BP 204/87
[2022-07-22] MEDS: HydrALAZINE HCL 25 MG TABLET PO SCH ×3 (08:02→20:05)
[2022-07-22] MEDS: MEGESTROL ACETATE 40 MG TABLET PO SCH ×2 (08:02→20:05)
[2022-07-22] MEDS: ASPIRIN 81 MG DR TABLET PO SCH (08:02)
[2022-07-22] MEDS: AmLODIPine BESYLATE 10 MG TABLET PO SCH (08:02)
[2022-07-22] MEDS: CYCLOBENZAPRINE HCL 10 MG TABLET PO SCH (08:03)
[2022-07-22] MEDS: CLOPIDOGREL BISULFATE 75 MG TABLET PO SCH (08:03)
[2022-07-22] MEDS: THIAMINE 100 MG TABLET PO SCH (08:03)
[2022-07-22] MEDS: MULTIVITAMINS, THERAPEUTIC TABLET PO SCH (08:03)
[2022-07-22] MEDS: HEPARIN SODIUM,PORCINE 5,000 UNITS/ML VIAL SQ SCH ×3 (08:04→23:18)
[2022-07-22] MEDS: ATENOLOL 25 MG TABLET PO SCH (09:58)
[2022-07-22 16:09] VITALS: BP 123/72
[2022-07-22] MEDS: HYDROCODONE/ACETAMINOPHEN 5-325 MG TABLET PO PRN ×2 (18:30→23:02)
[2022-07-22 20:00] VITALS: BP 99/54
[2022-07-22] MEDS: ATORVASTATIN CALCIUM 20 MG TABLET PO SCH (20:05)
[2022-07-23] MEDS: CloNIDine HCL 0.1 MG TABLET PO PRN (04:41)
[2022-07-23 05:00] VITALS: BP 165/58
[2022-07-23 06:07] VITALS: BP 122/58
[2022-07-23 08:00] VITALS: BP 135/57
[2022-07-23] MEDS: MEGESTROL ACETATE 40 MG TABLET PO SCH ×2 (08:15→20:40)
[2022-07-23] MEDS: AmLODIPine BESYLATE 10 MG TABLET PO SCH (08:15)
[2022-07-23] MEDS: MULTIVITAMINS, THERAPEUTIC TABLET PO SCH (08:15)
[2022-07-23] MEDS: THIAMINE 100 MG TABLET PO SCH (08:15)
[2022-07-23] MEDS: ASPIRIN 81 MG DR TABLET PO SCH (08:15)
[2022-07-23] MEDS: CLOPIDOGREL BISULFATE 75 MG TABLET PO SCH (08:15)
[2022-07-23] MEDS: DOCUSATE SODIUM 100 MG CAPSULE PO PRN (08:15)
[2022-07-23] MEDS: CYCLOBENZAPRINE HCL 10 MG TABLET PO SCH (08:16)
[2022-07-23] MEDS: HEPARIN SODIUM,PORCINE 5,000 UNITS/ML VIAL SQ SCH ×3 (08:17→23:13)
[2022-07-23] MEDS: HydrALAZINE HCL 25 MG TABLET PO SCH ×3 (09:00→20:40)
[2022-07-23] MEDS: ATENOLOL 25 MG TABLET PO SCH (10:00)
[2022-07-23 15:10] VITALS: BP 137/63
[2022-07-23] MEDS: ATORVASTATIN CALCIUM 20 MG TABLET PO SCH (20:40)
[2022-07-23] MEDS: ZOLPIDEM TARTRATE 5 MG TABLET PO PRN (20:45)
[2022-07-23 20:57] VITALS: BP 132/60
[2022-07-24] MEDS: HYDROCODONE/ACETAMINOPHEN 5-325 MG TABLET PO PRN ×2 (02:25→15:34)
[2022-07-24 05:00] VITALS: BP 144/54
[2022-07-24 07:58] VITALS: BP 143/75
[2022-07-24] MEDS: HEPARIN SODIUM,PORCINE 5,000 UNITS/ML VIAL SQ SCH ×2 (08:00→15:34)
[2022-07-24] MEDS: MEGESTROL ACETATE 40 MG TABLET PO SCH ×2 (08:19→21:40)
[2022-07-24] MEDS: THIAMINE 100 MG TABLET PO SCH (08:20)
[2022-07-24] MEDS: HydrALAZINE HCL 25 MG TABLET PO SCH ×3 (08:20→21:29)
[2022-07-24] MEDS: CLOPIDOGREL BISULFATE 75 MG TABLET PO SCH (08:20)
[2022-07-24] MEDS: MULTIVITAMINS, THERAPEUTIC TABLET PO SCH (08:20)
[2022-07-24] MEDS: DOCUSATE SODIUM 100 MG CAPSULE PO PRN (08:20)
[2022-07-24] MEDS: ASPIRIN 81 MG DR TABLET PO SCH (08:20)
[2022-07-24] MEDS: CYCLOBENZAPRINE HCL 10 MG TABLET PO SCH (08:20)
[2022-07-24] MEDS: AmLODIPine BESYLATE 10 MG TABLET PO SCH (08:21)
[2022-07-24 13:30] VITALS: BP 141/64
[2022-07-24] MEDS: ATENOLOL 25 MG TABLET PO SCH (13:32)
[2022-07-24 16:48] VITALS: BP 148/73
[2022-07-24 19:52] VITALS: BP 137/50
[2022-07-24] MEDS: ATORVASTATIN CALCIUM 20 MG TABLET PO SCH (21:26)
[2022-07-24] MEDS: ZOLPIDEM TARTRATE 5 MG TABLET PO PRN (21:54)
[2022-07-25] MEDS: HEPARIN SODIUM,PORCINE 5,000 UNITS/ML VIAL SQ SCH ×3 (00:10→16:00)
[2022-07-25 03:57] VITALS: BP 152/70
[2022-07-25] MEDS: HYDROCODONE/ACETAMINOPHEN 5-325 MG TABLET PO PRN ×3 (04:28→18:01)
[2022-07-25 07:57] VITALS: BP 154/122
[2022-07-25] MEDS: THIAMINE 100 MG TABLET PO SCH (08:58)
[2022-07-25] MEDS: MEGESTROL ACETATE 40 MG TABLET PO SCH ×2 (08:58→21:53)
[2022-07-25] MEDS: AmLODIPine BESYLATE 10 MG TABLET PO SCH (08:58)
[2022-07-25] MEDS: CYCLOBENZAPRINE HCL 10 MG TABLET PO SCH (08:58)
[2022-07-25] MEDS: CLOPIDOGREL BISULFATE 75 MG TABLET PO SCH (08:58)
[2022-07-25] MEDS: ASPIRIN 81 MG DR TABLET PO SCH (08:58)
[2022-07-25] MEDS: HydrALAZINE HCL 25 MG TABLET PO SCH ×3 (08:58→21:52)
[2022-07-25] MEDS: MULTIVITAMINS, THERAPEUTIC TABLET PO SCH (08:58)
[2022-07-25] MEDS: ATENOLOL 25 MG TABLET PO SCH (09:02)
[2022-07-25] MEDS: CloNIDine HCL 0.1 MG TABLET PO PRN (16:07)
[2022-07-25 16:29] VITALS: BP 169/65
[2022-07-25 20:00] VITALS: BP 138/65
[2022-07-25] MEDS: ATORVASTATIN CALCIUM 20 MG TABLET PO SCH (21:53)
[2022-07-26] MEDS: HYDROCODONE/ACETAMINOPHEN 5-325 MG TABLET PO PRN ×3 (04:22→16:26)
[2022-07-26 05:08] VITALS: BP 141/62
[2022-07-26 07:58] VITALS: BP 136/60
[2022-07-26] MEDS: MULTIVITAMINS, THERAPEUTIC TABLET PO SCH (08:37)
[2022-07-26] MEDS: ASPIRIN 81 MG DR TABLET PO SCH (08:37)
[2022-07-26] MEDS: CLOPIDOGREL BISULFATE 75 MG TABLET PO SCH (08:37)
[2022-07-26] MEDS: MEGESTROL ACETATE 40 MG TABLET PO SCH ×2 (08:38→20:52)
[2022-07-26] MEDS: THIAMINE 100 MG TABLET PO SCH (08:38)
[2022-07-26] MEDS: ATENOLOL 25 MG TABLET PO SCH ×2 (08:38→09:09)
[2022-07-26] MEDS: HydrALAZINE HCL 25 MG TABLET PO SCH ×3 (08:38→20:51)
[2022-07-26] MEDS: CYCLOBENZAPRINE HCL 10 MG TABLET PO SCH (08:38)
[2022-07-26] MEDS: AmLODIPine BESYLATE 10 MG TABLET PO SCH (08:38)
[2022-07-26] MEDS: HEPARIN SODIUM,PORCINE 5,000 UNITS/ML VIAL SQ SCH ×4 (08:39→23:22)
[2022-07-26 16:00] VITALS: BP 151/95
[2022-07-26] MEDS: ATORVASTATIN CALCIUM 20 MG TABLET PO SCH (20:52)
[2022-07-26 20:59] VITALS: BP 138/71
[2022-07-27] MEDS: ZOLPIDEM TARTRATE 5 MG TABLET PO PRN (00:06)
[2022-07-27] MEDS: HYDROCODONE/ACETAMINOPHEN 5-325 MG TABLET PO PRN ×3 (00:06→17:55)
[2022-07-27 05:36] VITALS: BP 142/51
[2022-07-27] MEDS: HEPARIN SODIUM,PORCINE 5,000 UNITS/ML VIAL SQ SCH ×3 (08:00→16:00)
[2022-07-27] MEDS: CYCLOBENZAPRINE HCL 10 MG TABLET PO SCH (08:50)
[2022-07-27] MEDS: AmLODIPine BESYLATE 10 MG TABLET PO SCH (08:50)
[2022-07-27] MEDS: THIAMINE 100 MG TABLET PO SCH (08:50)
[2022-07-27] MEDS: HydrALAZINE HCL 25 MG TABLET PO SCH ×4 (08:50→20:15)
[2022-07-27] MEDS: MULTIVITAMINS, THERAPEUTIC TABLET PO SCH (08:50)
[2022-07-27] MEDS: CLOPIDOGREL BISULFATE 75 MG TABLET PO SCH (08:50)
[2022-07-27] MEDS: ASPIRIN 81 MG DR TABLET PO SCH (08:51)
[2022-07-27] MEDS: MEGESTROL ACETATE 40 MG TABLET PO SCH ×2 (08:51→20:16)
[2022-07-27] MEDS: ATENOLOL 25 MG TABLET PO SCH (09:08)
[2022-07-27 09:24] VITALS: BP 164/75
[2022-07-27 17:29] VITALS: BP 126/56
[2022-07-27 20:13] VITALS: BP 132/45
[2022-07-27] MEDS: ATORVASTATIN CALCIUM 20 MG TABLET PO SCH (20:15)
[2022-07-28 05:54] VITALS: BP 158/75
[2022-07-28] MEDS: HYDROCODONE/ACETAMINOPHEN 5-325 MG TABLET PO PRN ×2 (05:57→23:47)
[2022-07-28 07:40] VITALS: BP 147/98
[2022-07-28] MEDS: HEPARIN SODIUM,PORCINE 5,000 UNITS/ML VIAL SQ SCH ×4 (08:00→23:51)
[2022-07-28] MEDS: MULTIVITAMINS, THERAPEUTIC TABLET PO SCH (08:24)
[2022-07-28] MEDS: CLOPIDOGREL BISULFATE 75 MG TABLET PO SCH (08:24)
[2022-07-28] MEDS: AmLODIPine BESYLATE 10 MG TABLET PO SCH (08:25)
[2022-07-28] MEDS: MEGESTROL ACETATE 40 MG TABLET PO SCH ×2 (08:25→20:36)
[2022-07-28] MEDS: THIAMINE 100 MG TABLET PO SCH (08:25)
[2022-07-28] MEDS: CYCLOBENZAPRINE HCL 10 MG TABLET PO SCH (08:25)
[2022-07-28] MEDS: HydrALAZINE HCL 25 MG TABLET PO SCH ×3 (08:25→20:35)
[2022-07-28] MEDS: ASPIRIN 81 MG DR TABLET PO SCH (08:25)
[2022-07-28] MEDS: ATENOLOL 25 MG TABLET PO SCH (11:01)
[2022-07-28 15:36] VITALS: BP 150/57
[2022-07-28 20:02] VITALS: BP 132/66
[2022-07-28] MEDS: ATORVASTATIN CALCIUM 20 MG TABLET PO SCH (20:36)
[2022-07-29 03:18] VITALS: BP 124/56
[2022-07-29] MEDS: HYDROCODONE/ACETAMINOPHEN 5-325 MG TABLET PO PRN ×2 (06:30→12:48)
[2022-07-29 08:15] VITALS: BP 179/68
[2022-07-29] MEDS: MEGESTROL ACETATE 40 MG TABLET PO SCH ×2 (08:17→21:20)
[2022-07-29] MEDS: AmLODIPine BESYLATE 10 MG TABLET PO SCH (08:17)
[2022-07-29] MEDS: ASPIRIN 81 MG DR TABLET PO SCH (08:17)
[2022-07-29] MEDS: THIAMINE 100 MG TABLET PO SCH (08:18)
[2022-07-29] MEDS: CYCLOBENZAPRINE HCL 10 MG TABLET PO SCH (08:18)
[2022-07-29] MEDS: MULTIVITAMINS, THERAPEUTIC TABLET PO SCH (08:18)
[2022-07-29] MEDS: CLOPIDOGREL BISULFATE 75 MG TABLET PO SCH (08:18)
[2022-07-29] MEDS: HydrALAZINE HCL 25 MG TABLET PO SCH ×3 (08:18→20:43)
[2022-07-29] MEDS: HEPARIN SODIUM,PORCINE 5,000 UNITS/ML VIAL SQ SCH ×2 (08:19→16:00)
[2022-07-29] MEDS: ATENOLOL 25 MG TABLET PO SCH (09:28)
[2022-07-29 16:19] VITALS: BP 124/54
[2022-07-29 20:33] VITALS: BP 101/52
[2022-07-29] MEDS: ATORVASTATIN CALCIUM 20 MG TABLET PO SCH (21:20)
[2022-07-30] MEDS: HEPARIN SODIUM,PORCINE 5,000 UNITS/ML VIAL SQ SCH ×4 (00:25→16:00)
[2022-07-30] MEDS: HYDROCODONE/ACETAMINOPHEN 5-325 MG TABLET PO PRN (00:31)
[2022-07-30 04:19] VITALS: BP 172/67
[2022-07-30 05:20] VITALS: BP 128/82
[2022-07-30 07:41] VITALS: BP 149/63
[2022-07-30] MEDS: MEGESTROL ACETATE 40 MG TABLET PO SCH ×2 (08:13→20:51)
[2022-07-30] MEDS: AmLODIPine BESYLATE 10 MG TABLET PO SCH (08:13)
[2022-07-30] MEDS: THIAMINE 100 MG TABLET PO SCH (08:13)
[2022-07-30] MEDS: HydrALAZINE HCL 25 MG TABLET PO SCH ×3 (08:14→20:50)
[2022-07-30] MEDS: CLOPIDOGREL BISULFATE 75 MG TABLET PO SCH (08:14)
[2022-07-30] MEDS: MULTIVITAMINS, THERAPEUTIC TABLET PO SCH (08:14)
[2022-07-30] MEDS: ASPIRIN 81 MG DR TABLET PO SCH (08:15)
[2022-07-30] MEDS: CYCLOBENZAPRINE HCL 10 MG TABLET PO SCH (08:15)
[2022-07-30] MEDS: ATENOLOL 25 MG TABLET PO SCH (10:00)
[2022-07-30 16:04] VITALS: BP 138/73
[2022-07-30] MEDS: ATORVASTATIN CALCIUM 20 MG TABLET PO SCH (20:49)
[2022-07-30 21:26] VITALS: BP 161/53
[2022-07-30 22:30] VITALS: BP 131/72
[2022-07-31] MEDS: HYDROCODONE/ACETAMINOPHEN 5-325 MG TABLET PO PRN (03:04)
[2022-07-31 04:30] VITALS: BP 130/73
[2022-07-31] MEDS: HEPARIN SODIUM,PORCINE 5,000 UNITS/ML VIAL SQ SCH ×3 (08:00→16:00)
[2022-07-31] MEDS: CLOPIDOGREL BISULFATE 75 MG TABLET PO SCH (08:14)
[2022-07-31] MEDS: MULTIVITAMINS, THERAPEUTIC TABLET PO SCH (08:14)
[2022-07-31] MEDS: AmLODIPine BESYLATE 10 MG TABLET PO SCH (08:14)
[2022-07-31] MEDS: HydrALAZINE HCL 25 MG TABLET PO SCH ×3 (08:15→20:34)
[2022-07-31] MEDS: THIAMINE 100 MG TABLET PO SCH (08:15)
[2022-07-31] MEDS: ASPIRIN 81 MG DR TABLET PO SCH (08:15)
[2022-07-31] MEDS: MEGESTROL ACETATE 40 MG TABLET PO SCH ×2 (08:15→20:35)
[2022-07-31] MEDS: CYCLOBENZAPRINE HCL 10 MG TABLET PO SCH (08:16)
[2022-07-31 08:56] VITALS: BP 155/76
[2022-07-31] MEDS: ATENOLOL 25 MG TABLET PO SCH (10:00)
[2022-07-31 20:32] VITALS: BP 128/64
[2022-07-31] MEDS: ATORVASTATIN CALCIUM 20 MG TABLET PO SCH (20:35)
[2022-08-01] MEDS: MAGNESIUM HYDROXIDE SUSPENSION 30 ML UDCUP PO PRN (02:44)
[2022-08-01 03:58] VITALS: BP 143/65
[2022-08-01] MEDS: HEPARIN SODIUM,PORCINE 5,000 UNITS/ML VIAL SQ SCH ×4 (08:00→23:26)
[2022-08-01] MEDS: ASPIRIN 81 MG DR TABLET PO SCH (08:37)
[2022-08-01] MEDS: HydrALAZINE HCL 25 MG TABLET PO SCH ×3 (08:38→20:45)
[2022-08-01] MEDS: ATENOLOL 25 MG TABLET PO SCH (08:38)
[2022-08-01] MEDS: CYCLOBENZAPRINE HCL 10 MG TABLET PO SCH (08:38)
[2022-08-01] MEDS: THIAMINE 100 MG TABLET PO SCH (08:38)
[2022-08-01] MEDS: CLOPIDOGREL BISULFATE 75 MG TABLET PO SCH (08:38)
[2022-08-01] MEDS: MEGESTROL ACETATE 40 MG TABLET PO SCH ×2 (08:38→20:41)
[2022-08-01] MEDS: MULTIVITAMINS, THERAPEUTIC TABLET PO SCH (08:38)
[2022-08-01] MEDS: AmLODIPine BESYLATE 10 MG TABLET PO SCH (08:39)
[2022-08-01 09:08] VITALS: BP 135/60
[2022-08-01] MEDS: HYDROCODONE/ACETAMINOPHEN 5-325 MG TABLET PO PRN (12:05)
[2022-08-01 12:30] VITALS: BP 140/70
[2022-08-01 15:26] VITALS: BP 125/58
[2022-08-01 20:21] VITALS: BP 110/54
[2022-08-01] MEDS: ATORVASTATIN CALCIUM 20 MG TABLET PO SCH (20:40)
[2022-08-02 06:00] VITALS: BP 143/84
[2022-08-02 08:00] VITALS: BP 141/83
[2022-08-02] MEDS: HEPARIN SODIUM,PORCINE 5,000 UNITS/ML VIAL SQ SCH ×3 (08:00→23:41)
[2022-08-02] MEDS: THIAMINE 100 MG TABLET PO SCH (08:52)
[2022-08-02] MEDS: CLOPIDOGREL BISULFATE 75 MG TABLET PO SCH (08:52)
[2022-08-02] MEDS: MEGESTROL ACETATE 40 MG TABLET PO SCH ×2 (08:53→21:11)
[2022-08-02] MEDS: ASPIRIN 81 MG DR TABLET PO SCH (08:53)
[2022-08-02] MEDS: MULTIVITAMINS, THERAPEUTIC TABLET PO SCH (08:53)
[2022-08-02] MEDS: HydrALAZINE HCL 25 MG TABLET PO SCH ×3 (08:54→21:08)
[2022-08-02] MEDS: AmLODIPine BESYLATE 10 MG TABLET PO SCH (08:54)
[2022-08-02] MEDS: CYCLOBENZAPRINE HCL 10 MG TABLET PO SCH (08:54)
[2022-08-02] MEDS: HYDROCODONE/ACETAMINOPHEN 5-325 MG TABLET PO PRN (08:55)
[2022-08-02] MEDS: ATENOLOL 25 MG TABLET PO SCH (11:07)
[2022-08-02 17:00] VITALS: BP 136/59
[2022-08-02 20:00] VITALS: BP 126/67
[2022-08-02] MEDS: ATORVASTATIN CALCIUM 20 MG TABLET PO SCH (21:11)
[2022-08-03 06:00] VITALS: BP 154/66
[2022-08-03] MEDS: HEPARIN SODIUM,PORCINE 5,000 UNITS/ML VIAL SQ SCH ×3 (08:00→23:29)
[2022-08-03] MEDS: AmLODIPine BESYLATE 10 MG TABLET PO SCH ×2 (08:00→09:03)
[2022-08-03] MEDS: MULTIVITAMINS, THERAPEUTIC TABLET PO SCH ×2 (08:30→09:04)
[2022-08-03 08:40] VITALS: BP_SYST 135; BP_DIAS 3; BP_DIAS 53
[2022-08-03] MEDS: THIAMINE 100 MG TABLET PO SCH ×2 (09:00→09:06)
[2022-08-03] MEDS: ASPIRIN 81 MG DR TABLET PO SCH ×2 (09:00→09:05)
[2022-08-03] MEDS: MEGESTROL ACETATE 40 MG TABLET PO SCH ×3 (09:00→20:58)
[2022-08-03] MEDS: CLOPIDOGREL BISULFATE 75 MG TABLET PO SCH ×2 (09:00→09:07)
[2022-08-03] MEDS: CYCLOBENZAPRINE HCL 10 MG TABLET PO SCH ×2 (09:00→09:05)
[2022-08-03] MEDS: HydrALAZINE HCL 25 MG TABLET PO SCH ×3 (09:07→20:57)
[2022-08-03] MEDS: ATENOLOL 25 MG TABLET PO SCH (10:00)
[2022-08-03] MEDS: HYDROCODONE/ACETAMINOPHEN 5-325 MG TABLET PO PRN (13:35)
[2022-08-03 15:46] VITALS: BP 138/60
[2022-08-03 20:33] VITALS: BP 134/53
[2022-08-03] MEDS: ATORVASTATIN CALCIUM 20 MG TABLET PO SCH (20:57)
[2022-08-04 04:50] VITALS: BP 127/54
[2022-08-04 08:00] VITALS: BP 130/52
[2022-08-04] MEDS: HEPARIN SODIUM,PORCINE 5,000 UNITS/ML VIAL SQ SCH ×3 (08:00→23:30)
[2022-08-04] MEDS: MULTIVITAMINS, THERAPEUTIC TABLET PO SCH (09:07)
[2022-08-04] MEDS: CLOPIDOGREL BISULFATE 75 MG TABLET PO SCH (09:07)
[2022-08-04] MEDS: ASPIRIN 81 MG DR TABLET PO SCH (09:07)
[2022-08-04] MEDS: CYCLOBENZAPRINE HCL 10 MG TABLET PO SCH (09:07)
[2022-08-04] MEDS: THIAMINE 100 MG TABLET PO SCH (09:07)
[2022-08-04] MEDS: AmLODIPine BESYLATE 10 MG TABLET PO SCH (09:07)
[2022-08-04] MEDS: MEGESTROL ACETATE 40 MG TABLET PO SCH ×2 (09:08→20:10)
[2022-08-04] MEDS: HydrALAZINE HCL 25 MG TABLET PO SCH ×3 (09:08→20:10)
[2022-08-04] MEDS: ATENOLOL 25 MG TABLET PO SCH (10:00)
[2022-08-04 16:48] VITALS: BP 141/62
[2022-08-04] MEDS: ATORVASTATIN CALCIUM 20 MG TABLET PO SCH (20:09)
[2022-08-04 20:39] VITALS: BP 127/50
[2022-08-05 04:21] VITALS: BP 119/65
[2022-08-05] MEDS: HYDROCODONE/ACETAMINOPHEN 5-325 MG TABLET PO PRN ×3 (07:44→20:09)
[2022-08-05] MEDS: HEPARIN SODIUM,PORCINE 5,000 UNITS/ML VIAL SQ SCH ×2 (08:00→16:00)
[2022-08-05] MEDS: AmLODIPine BESYLATE 10 MG TABLET PO SCH (08:00)
[2022-08-05] MEDS: CLOPIDOGREL BISULFATE 75 MG TABLET PO SCH (08:47)
[2022-08-05] MEDS: MEGESTROL ACETATE 40 MG TABLET PO SCH ×2 (08:47→20:10)
[2022-08-05] MEDS: THIAMINE 100 MG TABLET PO SCH (08:48)
[2022-08-05] MEDS: ASPIRIN 81 MG DR TABLET PO SCH (08:48)
[2022-08-05] MEDS: CYCLOBENZAPRINE HCL 10 MG TABLET PO SCH (08:48)
[2022-08-05] MEDS: MULTIVITAMINS, THERAPEUTIC TABLET PO SCH (08:49)
[2022-08-05] MEDS: HydrALAZINE HCL 25 MG TABLET PO SCH ×3 (09:00→20:09)
[2022-08-05] MEDS: ATENOLOL 25 MG TABLET PO SCH (10:00)
[2022-08-05 13:05] VITALS: BP 115/68
[2022-08-05] MEDS: ATORVASTATIN CALCIUM 20 MG TABLET PO SCH (20:09)
[2022-08-05] MEDS: ZOLPIDEM TARTRATE 5 MG TABLET PO PRN (20:09)
[2022-08-05 20:37] VITALS: BP 165/75
[2022-08-06] MEDS: MAGNESIUM HYDROXIDE SUSPENSION 30 ML UDCUP PO PRN (01:30)
[2022-08-06 03:46] VITALS: BP 118/55
[2022-08-06] MEDS: HYDROCODONE/ACETAMINOPHEN 5-325 MG TABLET PO PRN ×4 (03:57→21:45)
[2022-08-06 08:26] VITALS: BP 142/72
[2022-08-06] MEDS: ASPIRIN 81 MG DR TABLET PO SCH (09:03)
[2022-08-06] MEDS: HEPARIN SODIUM,PORCINE 5,000 UNITS/ML VIAL SQ SCH ×3 (09:03→16:24)
[2022-08-06] MEDS: MULTIVITAMINS, THERAPEUTIC TABLET PO SCH (09:04)
[2022-08-06] MEDS: THIAMINE 100 MG TABLET PO SCH (09:04)
[2022-08-06] MEDS: DOCUSATE SODIUM 100 MG CAPSULE PO PRN (09:04)
[2022-08-06] MEDS: MEGESTROL ACETATE 40 MG TABLET PO SCH ×2 (09:04→21:05)
[2022-08-06] MEDS: CLOPIDOGREL BISULFATE 75 MG TABLET PO SCH (09:05)
[2022-08-06] MEDS: ATENOLOL 25 MG TABLET PO SCH (09:05)
[2022-08-06] MEDS: AmLODIPine BESYLATE 10 MG TABLET PO SCH (09:06)
[2022-08-06] MEDS: CYCLOBENZAPRINE HCL 10 MG TABLET PO SCH (09:06)
[2022-08-06] MEDS: HydrALAZINE HCL 25 MG TABLET PO SCH ×3 (09:06→21:05)
[2022-08-06 16:18] VITALS: BP 125/71
[2022-08-06 20:00] VITALS: BP 124/52
[2022-08-06] MEDS: ATORVASTATIN CALCIUM 20 MG TABLET PO SCH (21:05)
[2022-08-06] MEDS: ZOLPIDEM TARTRATE 5 MG TABLET PO PRN (22:34)
[2022-08-07 04:44] VITALS: BP 139/73
[2022-08-07] MEDS: BISACODYL 10 MG RECTAL RECTAL SUPPOSITORY PR PRN (06:17)
[2022-08-07] MEDS: HEPARIN SODIUM,PORCINE 5,000 UNITS/ML VIAL SQ SCH ×4 (08:00→23:37)
[2022-08-07] MEDS: CLOPIDOGREL BISULFATE 75 MG TABLET PO SCH (08:50)
[2022-08-07] MEDS: AmLODIPine BESYLATE 10 MG TABLET PO SCH (08:50)
[2022-08-07] MEDS: THIAMINE 100 MG TABLET PO SCH (08:51)
[2022-08-07] MEDS: ASPIRIN 81 MG DR TABLET PO SCH (08:51)
[2022-08-07] MEDS: CYCLOBENZAPRINE HCL 10 MG TABLET PO SCH (08:51)
[2022-08-07] MEDS: HydrALAZINE HCL 25 MG TABLET PO SCH ×3 (08:51→20:10)
[2022-08-07] MEDS: MEGESTROL ACETATE 40 MG TABLET PO SCH ×2 (08:52→20:10)
[2022-08-07] MEDS: MULTIVITAMINS, THERAPEUTIC TABLET PO SCH (08:52)
[2022-08-07 09:10] VITALS: BP 120/58
[2022-08-07] MEDS: ATENOLOL 25 MG TABLET PO SCH (10:00)
[2022-08-07 15:21] VITALS: BP 116/64
[2022-08-07 18:00] VITALS: BP 121/56
[2022-08-07 20:00] VITALS: BP 115/56
[2022-08-07] MEDS: ZOLPIDEM TARTRATE 5 MG TABLET PO PRN (20:07)
[2022-08-07] MEDS: HYDROCODONE/ACETAMINOPHEN 5-325 MG TABLET PO PRN (20:07)
[2022-08-07] MEDS: ATORVASTATIN CALCIUM 20 MG TABLET PO SCH (20:10)
[2022-08-08] MEDS: HYDROCODONE/ACETAMINOPHEN 5-325 MG TABLET PO PRN ×2 (05:50→13:00)
[2022-08-08 07:44] VITALS: BP 136/51
[2022-08-08] MEDS: HEPARIN SODIUM,PORCINE 5,000 UNITS/ML VIAL SQ SCH ×2 (08:00→15:54)
[2022-08-08] MEDS: CLOPIDOGREL BISULFATE 75 MG TABLET PO SCH (08:37)
[2022-08-08] MEDS: AmLODIPine BESYLATE 10 MG TABLET PO SCH (08:37)
[2022-08-08] MEDS: HydrALAZINE HCL 25 MG TABLET PO SCH ×3 (08:38→21:09)
[2022-08-08] MEDS: ASPIRIN 81 MG DR TABLET PO SCH (08:38)
[2022-08-08] MEDS: MULTIVITAMINS, THERAPEUTIC TABLET PO SCH (08:38)
[2022-08-08] MEDS: MEGESTROL ACETATE 40 MG TABLET PO SCH ×2 (08:38→21:07)
[2022-08-08] MEDS: CYCLOBENZAPRINE HCL 10 MG TABLET PO SCH (08:38)
[2022-08-08] MEDS: THIAMINE 100 MG TABLET PO SCH (08:38)
[2022-08-08] MEDS: ATENOLOL 25 MG TABLET PO SCH (10:05)
[2022-08-08 15:48] VITALS: BP 124/66
[2022-08-08 20:00] VITALS: BP 138/70
[2022-08-08] MEDS: ATORVASTATIN CALCIUM 20 MG TABLET PO SCH (21:08)
[2022-08-09] MEDS: ZOLPIDEM TARTRATE 5 MG TABLET PO PRN (02:17)
[2022-08-09 05:15] VITALS: BP 131/69
[2022-08-09] MEDS: HEPARIN SODIUM,PORCINE 5,000 UNITS/ML VIAL SQ SCH ×3 (08:00→16:00)
[2022-08-09] MEDS: ASPIRIN 81 MG DR TABLET PO SCH (08:10)
[2022-08-09] MEDS: CYCLOBENZAPRINE HCL 10 MG TABLET PO SCH (08:11)
[2022-08-09] MEDS: THIAMINE 100 MG TABLET PO SCH (08:11)
[2022-08-09] MEDS: AmLODIPine BESYLATE 10 MG TABLET PO SCH (08:11)
[2022-08-09] MEDS: CLOPIDOGREL BISULFATE 75 MG TABLET PO SCH (08:11)
[2022-08-09] MEDS: HydrALAZINE HCL 25 MG TABLET PO SCH ×3 (08:12→20:07)
[2022-08-09] MEDS: MEGESTROL ACETATE 40 MG TABLET PO SCH ×2 (08:12→20:08)
[2022-08-09 08:31] VITALS: BP 154/63
[2022-08-09] MEDS: MULTIVITAMINS, THERAPEUTIC TABLET PO SCH (10:11)
[2022-08-09] MEDS: ATENOLOL 25 MG TABLET PO SCH (10:11)
[2022-08-09] MEDS: HYDROCODONE/ACETAMINOPHEN 5-325 MG TABLET PO PRN (10:11)
[2022-08-09 15:19] VITALS: BP 126/85
[2022-08-09 16:07] VITALS: BP 133/57
[2022-08-09 19:43] VITALS: BP 139/64
[2022-08-09] MEDS: ATORVASTATIN CALCIUM 20 MG TABLET PO SCH (20:08)
[2022-08-10 03:41] VITALS: BP 146/70
[2022-08-10] MEDS: ASPIRIN 81 MG DR TABLET PO SCH (07:50)
[2022-08-10] MEDS: MULTIVITAMINS, THERAPEUTIC TABLET PO SCH (07:50)
[2022-08-10] MEDS: HydrALAZINE HCL 25 MG TABLET PO SCH ×3 (07:50→20:31)
[2022-08-10] MEDS: CYCLOBENZAPRINE HCL 10 MG TABLET PO SCH (07:51)
[2022-08-10] MEDS: CLOPIDOGREL BISULFATE 75 MG TABLET PO SCH (07:51)
[2022-08-10] MEDS: THIAMINE 100 MG TABLET PO SCH (07:51)
[2022-08-10] MEDS: AmLODIPine BESYLATE 10 MG TABLET PO SCH (07:51)
[2022-08-10] MEDS: HEPARIN SODIUM,PORCINE 5,000 UNITS/ML VIAL SQ SCH ×4 (08:00→23:16)
[2022-08-10] MEDS: MEGESTROL ACETATE 40 MG TABLET PO SCH ×2 (08:01→20:40)
[2022-08-10 08:54] VITALS: BP 134/74
[2022-08-10] MEDS: ATENOLOL 25 MG TABLET PO SCH (10:58)
[2022-08-10 16:25] VITALS: BP 135/49
[2022-08-10] MEDS: HYDROCODONE/ACETAMINOPHEN 5-325 MG TABLET PO PRN (16:31)
[2022-08-10] MEDS: ATORVASTATIN CALCIUM 20 MG TABLET PO SCH (20:31)
[2022-08-10] MEDS: ZOLPIDEM TARTRATE 5 MG TABLET PO PRN (20:34)
[2022-08-10 21:30] VITALS: BP 120/57
[2022-08-11] MEDS: HYDROCODONE/ACETAMINOPHEN 5-325 MG TABLET PO PRN ×3 (04:29→20:33)
[2022-08-11 04:58] VITALS: BP 120/65
[2022-08-11 08:00] VITALS: BP 123/79
[2022-08-11] MEDS: HEPARIN SODIUM,PORCINE 5,000 UNITS/ML VIAL SQ SCH ×3 (08:30→23:55)
[2022-08-11] MEDS: MEGESTROL ACETATE 40 MG TABLET PO SCH ×2 (08:30→20:33)
[2022-08-11] MEDS: ASPIRIN 81 MG DR TABLET PO SCH (08:31)
[2022-08-11] MEDS: AmLODIPine BESYLATE 10 MG TABLET PO SCH (08:31)
[2022-08-11] MEDS: HydrALAZINE HCL 25 MG TABLET PO SCH ×3 (08:31→20:33)
[2022-08-11] MEDS: CLOPIDOGREL BISULFATE 75 MG TABLET PO SCH (08:31)
[2022-08-11] MEDS: CYCLOBENZAPRINE HCL 10 MG TABLET PO SCH (08:31)
[2022-08-11] MEDS: MULTIVITAMINS, THERAPEUTIC TABLET PO SCH (08:35)
[2022-08-11] MEDS: ATENOLOL 25 MG TABLET PO SCH (10:59)
[2022-08-11] MEDS: THIAMINE 100 MG TABLET PO SCH (11:02)
[2022-08-11 15:19] VITALS: BP 124/65
[2022-08-11 20:29] VITALS: BP 131/67
[2022-08-11] MEDS: ZOLPIDEM TARTRATE 5 MG TABLET PO PRN (20:33)
[2022-08-11] MEDS: ATORVASTATIN CALCIUM 20 MG TABLET PO SCH (20:33)
[2022-08-12] MEDS: HYDROCODONE/ACETAMINOPHEN 5-325 MG TABLET PO PRN ×2 (01:16→21:08)
[2022-08-12 05:32] VITALS: BP 139/56
[2022-08-12] MEDS: HEPARIN SODIUM,PORCINE 5,000 UNITS/ML VIAL SQ SCH ×3 (08:00→22:50)
[2022-08-12] MEDS: AmLODIPine BESYLATE 10 MG TABLET PO SCH (08:10)
[2022-08-12] MEDS: MEGESTROL ACETATE 40 MG TABLET PO SCH ×2 (08:10→21:09)
[2022-08-12] MEDS: CYCLOBENZAPRINE HCL 10 MG TABLET PO SCH (08:11)
[2022-08-12] MEDS: CLOPIDOGREL BISULFATE 75 MG TABLET PO SCH (08:12)
[2022-08-12] MEDS: HydrALAZINE HCL 25 MG TABLET PO SCH ×3 (08:12→21:09)
[2022-08-12] MEDS: THIAMINE 100 MG TABLET PO SCH (08:13)
[2022-08-12] MEDS: ASPIRIN 81 MG DR TABLET PO SCH (08:13)
[2022-08-12 08:39] VITALS: BP 138/65
[2022-08-12] MEDS: MULTIVITAMINS, THERAPEUTIC TABLET PO SCH (11:09)
[2022-08-12] MEDS: ATENOLOL 25 MG TABLET PO SCH (11:13)
[2022-08-12 15:17] VITALS: BP 134/73
[2022-08-12 19:50] VITALS: BP 118/76
[2022-08-12] MEDS: ZOLPIDEM TARTRATE 5 MG TABLET PO PRN (21:09)
[2022-08-12] MEDS: ATORVASTATIN CALCIUM 20 MG TABLET PO SCH (21:09)
[2022-08-13 03:25] VITALS: BP 96/88
[2022-08-13 08:00] VITALS: BP 148/70
[2022-08-13] MEDS: HEPARIN SODIUM,PORCINE 5,000 UNITS/ML VIAL SQ SCH ×2 (08:00→16:00)
[2022-08-13] MEDS: AmLODIPine BESYLATE 10 MG TABLET PO SCH (08:37)
[2022-08-13] MEDS: ASPIRIN 81 MG DR TABLET PO SCH (08:38)
[2022-08-13] MEDS: CLOPIDOGREL BISULFATE 75 MG TABLET PO SCH (08:38)
[2022-08-13] MEDS: HydrALAZINE HCL 25 MG TABLET PO SCH ×3 (08:38→20:01)
[2022-08-13] MEDS: THIAMINE 100 MG TABLET PO SCH (08:38)
[2022-08-13] MEDS: MEGESTROL ACETATE 40 MG TABLET PO SCH ×2 (08:38→20:02)
[2022-08-13] MEDS: CYCLOBENZAPRINE HCL 10 MG TABLET PO SCH (08:38)
[2022-08-13] MEDS: MULTIVITAMINS, THERAPEUTIC TABLET PO SCH (08:38)
[2022-08-13] MEDS: ATENOLOL 25 MG TABLET PO SCH (10:00)
[2022-08-13] MEDS: HYDROCODONE/ACETAMINOPHEN 5-325 MG TABLET PO PRN ×3 (13:50→22:00)
[2022-08-13 17:12] VITALS: BP 117/58
[2022-08-13 19:56] VITALS: BP 132/57
[2022-08-13] MEDS: ATORVASTATIN CALCIUM 20 MG TABLET PO SCH (20:01)
[2022-08-13] MEDS: DOCUSATE SODIUM 100 MG CAPSULE PO PRN (22:13)
[2022-08-14] MEDS: HYDROCODONE/ACETAMINOPHEN 5-325 MG TABLET PO PRN ×3 (02:56→20:01)
[2022-08-14] MEDS: HEPARIN SODIUM,PORCINE 5,000 UNITS/ML VIAL SQ SCH ×3 (08:00→15:08)
[2022-08-14 08:20] VITALS: BP 150/71
[2022-08-14] MEDS: ASPIRIN 81 MG DR TABLET PO SCH (09:12)
[2022-08-14] MEDS: MEGESTROL ACETATE 40 MG TABLET PO SCH ×2 (09:12→19:56)
[2022-08-14] MEDS: HydrALAZINE HCL 25 MG TABLET PO SCH ×3 (09:12→19:56)
[2022-08-14] MEDS: CLOPIDOGREL BISULFATE 75 MG TABLET PO SCH (09:19)
[2022-08-14] MEDS: CYCLOBENZAPRINE HCL 10 MG TABLET PO SCH (09:19)
[2022-08-14] MEDS: AmLODIPine BESYLATE 10 MG TABLET PO SCH (09:19)
[2022-08-14] MEDS: THIAMINE 100 MG TABLET PO SCH (09:19)
[2022-08-14] MEDS: MULTIVITAMINS, THERAPEUTIC TABLET PO SCH (09:20)
[2022-08-14] MEDS: ATENOLOL 25 MG TABLET PO SCH (10:00)
[2022-08-14] MEDS: ACETAMINOPHEN 325 MG TABLET PO PRN (15:07)
[2022-08-14 16:40] VITALS: BP 101/47
[2022-08-14] MEDS: ATORVASTATIN CALCIUM 20 MG TABLET PO SCH (19:55)
[2022-08-14 20:00] VITALS: BP 130/79
[2022-08-15] MEDS: HYDROCODONE/ACETAMINOPHEN 5-325 MG TABLET PO PRN (06:45)
[2022-08-15] MEDS: HEPARIN SODIUM,PORCINE 5,000 UNITS/ML VIAL SQ SCH ×3 (08:00→16:00)
[2022-08-15 08:32] VITALS: BP 130/86
[2022-08-15] MEDS: HydrALAZINE HCL 25 MG TABLET PO SCH ×3 (08:47→20:22)
[2022-08-15] MEDS: MULTIVITAMINS, THERAPEUTIC TABLET PO SCH (08:47)
[2022-08-15] MEDS: THIAMINE 100 MG TABLET PO SCH (08:47)
[2022-08-15] MEDS: MEGESTROL ACETATE 40 MG TABLET PO SCH ×2 (08:47→20:22)
[2022-08-15] MEDS: CYCLOBENZAPRINE HCL 10 MG TABLET PO SCH (08:48)
[2022-08-15] MEDS: ASPIRIN 81 MG DR TABLET PO SCH (08:48)
[2022-08-15] MEDS: CLOPIDOGREL BISULFATE 75 MG TABLET PO SCH (08:48)
[2022-08-15] MEDS: AmLODIPine BESYLATE 10 MG TABLET PO SCH (08:48)
[2022-08-15] MEDS: ATENOLOL 25 MG TABLET PO SCH (10:38)
[2022-08-15 16:24] VITALS: BP 135/66
[2022-08-15 19:45] VITALS: BP 121/66
[2022-08-15] MEDS: ATORVASTATIN CALCIUM 20 MG TABLET PO SCH (20:21)
[2022-08-16 03:41] VITALS: BP 122/58
[2022-08-16] MEDS: HEPARIN SODIUM,PORCINE 5,000 UNITS/ML VIAL SQ SCH ×3 (08:00→15:18)
[2022-08-16 08:03] VITALS: BP 121/64
[2022-08-16] MEDS: CLOPIDOGREL BISULFATE 75 MG TABLET PO SCH (09:15)
[2022-08-16] MEDS: HydrALAZINE HCL 25 MG TABLET PO SCH ×3 (09:16→21:21)
[2022-08-16] MEDS: MEGESTROL ACETATE 40 MG TABLET PO SCH ×2 (09:16→21:21)
[2022-08-16] MEDS: THIAMINE 100 MG TABLET PO SCH (09:17)
[2022-08-16] MEDS: AmLODIPine BESYLATE 10 MG TABLET PO SCH (09:17)
[2022-08-16] MEDS: ASPIRIN 81 MG DR TABLET PO SCH (09:18)
[2022-08-16] MEDS: CYCLOBENZAPRINE HCL 10 MG TABLET PO SCH (09:19)
[2022-08-16] MEDS: MULTIVITAMINS, THERAPEUTIC TABLET PO SCH (09:21)
[2022-08-16] MEDS: ATENOLOL 25 MG TABLET PO SCH (12:14)
[2022-08-16 15:16] VITALS: BP 123/62
[2022-08-16 20:05] VITALS: BP 120/67
[2022-08-16] MEDS: ATORVASTATIN CALCIUM 20 MG TABLET PO SCH (21:21)
[2022-08-17] MEDS: HYDROCODONE/ACETAMINOPHEN 5-325 MG TABLET PO PRN ×4 (03:59→23:08)
[2022-08-17 04:03] VITALS: BP 121/75
[2022-08-17 07:45] VITALS: BP 127/83
[2022-08-17] MEDS: HEPARIN SODIUM,PORCINE 5,000 UNITS/ML VIAL SQ SCH ×4 (08:00→23:08)
[2022-08-17] MEDS: HydrALAZINE HCL 25 MG TABLET PO SCH ×3 (08:36→20:41)
[2022-08-17] MEDS: CLOPIDOGREL BISULFATE 75 MG TABLET PO SCH (08:36)
[2022-08-17] MEDS: MEGESTROL ACETATE 40 MG TABLET PO SCH ×2 (08:37→20:41)
[2022-08-17] MEDS: THIAMINE 100 MG TABLET PO SCH (08:37)
[2022-08-17] MEDS: ASPIRIN 81 MG DR TABLET PO SCH (08:37)
[2022-08-17] MEDS: ATENOLOL 25 MG TABLET PO SCH (08:37)
[2022-08-17] MEDS: AmLODIPine BESYLATE 10 MG TABLET PO SCH (08:37)
[2022-08-17] MEDS: CYCLOBENZAPRINE HCL 10 MG TABLET PO SCH (08:38)
[2022-08-17] MEDS: MULTIVITAMINS, THERAPEUTIC TABLET PO SCH (08:38)
[2022-08-17 15:28] VITALS: BP 112/66
[2022-08-17 20:00] VITALS: BP 138/54
[2022-08-17] MEDS: ATORVASTATIN CALCIUM 20 MG TABLET PO SCH (20:41)
[2022-08-18 05:02] VITALS: BP 146/66
[2022-08-18 07:38] VITALS: BP 142/62
[2022-08-18] MEDS: ATENOLOL 25 MG TABLET PO SCH (08:11)
[2022-08-18] MEDS: THIAMINE 100 MG TABLET PO SCH (08:11)
[2022-08-18] MEDS: HydrALAZINE HCL 25 MG TABLET PO SCH ×3 (08:11→21:19)
[2022-08-18] MEDS: AmLODIPine BESYLATE 10 MG TABLET PO SCH (08:11)
[2022-08-18] MEDS: ASPIRIN 81 MG DR TABLET PO SCH (08:11)
[2022-08-18] MEDS: CYCLOBENZAPRINE HCL 10 MG TABLET PO SCH (08:12)
[2022-08-18] MEDS: HYDROCODONE/ACETAMINOPHEN 5-325 MG TABLET PO PRN ×3 (08:13→21:18)
[2022-08-18] MEDS: MEGESTROL ACETATE 40 MG TABLET PO SCH ×2 (08:13→21:19)
[2022-08-18] MEDS: HEPARIN SODIUM,PORCINE 5,000 UNITS/ML VIAL SQ SCH ×2 (08:13→15:05)
[2022-08-18] MEDS: CLOPIDOGREL BISULFATE 75 MG TABLET PO SCH (08:16)
[2022-08-18] MEDS: MULTIVITAMINS, THERAPEUTIC TABLET PO SCH (10:30)
[2022-08-18 20:56] VITALS: BP 147/70
[2022-08-18] MEDS: ATORVASTATIN CALCIUM 20 MG TABLET PO SCH (21:19)
[2022-08-19] MEDS: HYDROCODONE/ACETAMINOPHEN 5-325 MG TABLET PO PRN ×3 (04:43→20:01)
[2022-08-19 05:07] VITALS: BP 119/67
[2022-08-19 08:09] VITALS: BP 111/59
[2022-08-19] MEDS: MULTIVITAMINS, THERAPEUTIC TABLET PO SCH (08:56)
[2022-08-19] MEDS: MEGESTROL ACETATE 40 MG TABLET PO SCH ×2 (08:57→20:01)
[2022-08-19] MEDS: AmLODIPine BESYLATE 10 MG TABLET PO SCH (08:57)
[2022-08-19] MEDS: CLOPIDOGREL BISULFATE 75 MG TABLET PO SCH (08:57)
[2022-08-19] MEDS: THIAMINE 100 MG TABLET PO SCH (08:57)
[2022-08-19] MEDS: HydrALAZINE HCL 25 MG TABLET PO SCH ×3 (08:57→20:01)
[2022-08-19] MEDS: CYCLOBENZAPRINE HCL 10 MG TABLET PO SCH (08:58)
[2022-08-19] MEDS: ASPIRIN 81 MG DR TABLET PO SCH (08:58)
[2022-08-19] MEDS: ATENOLOL 25 MG TABLET PO SCH (08:58)
[2022-08-19] MEDS: HEPARIN SODIUM,PORCINE 5,000 UNITS/ML VIAL SQ SCH ×3 (08:58→15:02)
[2022-08-19 15:59] VITALS: BP 123/65
[2022-08-19] MEDS: ZOLPIDEM TARTRATE 5 MG TABLET PO PRN (20:01)
[2022-08-19] MEDS: ATORVASTATIN CALCIUM 20 MG TABLET PO SCH (20:01)
[2022-08-19 20:36] VITALS: BP 117/47
[2022-08-19] MEDS: ACETAMINOPHEN 325 MG TABLET PO PRN (21:12)
[2022-08-20] MEDS: HEPARIN SODIUM,PORCINE 5,000 UNITS/ML VIAL SQ SCH ×4 (00:17→23:23)
[2022-08-20 04:45] VITALS: BP 129/66
[2022-08-20] MEDS: HYDROCODONE/ACETAMINOPHEN 5-325 MG TABLET PO PRN ×2 (06:26→23:24)
[2022-08-20] MEDS: THIAMINE 100 MG TABLET PO SCH (11:19)
[2022-08-20] MEDS: ASPIRIN 81 MG DR TABLET PO SCH (11:19)
[2022-08-20] MEDS: DOCUSATE SODIUM 100 MG CAPSULE PO PRN (11:19)
[2022-08-20] MEDS: HydrALAZINE HCL 25 MG TABLET PO SCH ×3 (11:20→20:55)
[2022-08-20] MEDS: ATENOLOL 25 MG TABLET PO SCH (11:20)
[2022-08-20] MEDS: MEGESTROL ACETATE 40 MG TABLET PO SCH ×2 (11:20→20:55)
[2022-08-20] MEDS: CLOPIDOGREL BISULFATE 75 MG TABLET PO SCH (11:21)
[2022-08-20] MEDS: MULTIVITAMINS, THERAPEUTIC TABLET PO SCH (11:21)
[2022-08-20] MEDS: AmLODIPine BESYLATE 10 MG TABLET PO SCH (11:21)
[2022-08-20] MEDS: CYCLOBENZAPRINE HCL 10 MG TABLET PO SCH (11:21)
[2022-08-20 11:44] VITALS: BP 154/74
[2022-08-20 15:34] VITALS: BP 132/75
[2022-08-20] MEDS: ATORVASTATIN CALCIUM 20 MG TABLET PO SCH (20:55)
[2022-08-20] MEDS: ZOLPIDEM TARTRATE 5 MG TABLET PO PRN (23:23)
[2022-08-21] MEDS: HYDROCODONE/ACETAMINOPHEN 5-325 MG TABLET PO PRN ×3 (05:12→21:03)
[2022-08-21 05:16] VITALS: BP 134/59
[2022-08-21 07:39] VITALS: BP 128/69
[2022-08-21] MEDS: HydrALAZINE HCL 25 MG TABLET PO SCH ×3 (08:48→21:01)
[2022-08-21] MEDS: THIAMINE 100 MG TABLET PO SCH (08:48)
[2022-08-21] MEDS: ATENOLOL 25 MG TABLET PO SCH (08:48)
[2022-08-21] MEDS: ASPIRIN 81 MG DR TABLET PO SCH (08:48)
[2022-08-21] MEDS: AmLODIPine BESYLATE 10 MG TABLET PO SCH (08:49)
[2022-08-21] MEDS: MULTIVITAMINS, THERAPEUTIC TABLET PO SCH (08:49)
[2022-08-21] MEDS: CYCLOBENZAPRINE HCL 10 MG TABLET PO SCH (08:49)
[2022-08-21] MEDS: MEGESTROL ACETATE 40 MG TABLET PO SCH ×2 (08:49→21:02)
[2022-08-21] MEDS: CLOPIDOGREL BISULFATE 75 MG TABLET PO SCH (08:49)
[2022-08-21] MEDS: HEPARIN SODIUM,PORCINE 5,000 UNITS/ML VIAL SQ SCH ×3 (08:50→23:55)
[2022-08-21 15:20] VITALS: BP 125/70
[2022-08-21 19:32] VITALS: BP 124/53
[2022-08-21] MEDS: ATORVASTATIN CALCIUM 20 MG TABLET PO SCH (21:02)
[2022-08-22] MEDS: ZOLPIDEM TARTRATE 5 MG TABLET PO PRN ×2 (01:52→21:08)
[2022-08-22 03:31] VITALS: BP 123/92
[2022-08-22] MEDS: HYDROCODONE/ACETAMINOPHEN 5-325 MG TABLET PO PRN ×3 (03:31→16:12)
[2022-08-22] MEDS: HEPARIN SODIUM,PORCINE 5,000 UNITS/ML VIAL SQ SCH ×2 (08:00→16:00)
[2022-08-22 08:11] VITALS: BP 118/53
[2022-08-22] MEDS: THIAMINE 100 MG TABLET PO SCH (08:16)
[2022-08-22] MEDS: MEGESTROL ACETATE 40 MG TABLET PO SCH ×2 (08:16→21:07)
[2022-08-22] MEDS: ASPIRIN 81 MG DR TABLET PO SCH (08:16)
[2022-08-22] MEDS: MULTIVITAMINS, THERAPEUTIC TABLET PO SCH (08:16)
[2022-08-22] MEDS: HydrALAZINE HCL 25 MG TABLET PO SCH ×3 (08:16→21:07)
[2022-08-22] MEDS: AmLODIPine BESYLATE 10 MG TABLET PO SCH (08:16)
[2022-08-22] MEDS: CYCLOBENZAPRINE HCL 10 MG TABLET PO SCH (08:16)
[2022-08-22] MEDS: CLOPIDOGREL BISULFATE 75 MG TABLET PO SCH (08:16)
[2022-08-22] MEDS: ATENOLOL 25 MG TABLET PO SCH (10:14)
[2022-08-22 16:11] VITALS: BP 125/69
[2022-08-22 20:28] VITALS: BP 130/61
[2022-08-22] MEDS: ATORVASTATIN CALCIUM 20 MG TABLET PO SCH (21:08)
[2022-08-22] MEDS: DOCUSATE SODIUM 100 MG CAPSULE PO PRN (21:08)
[2022-08-23] MEDS: AmLODIPine BESYLATE 10 MG TABLET PO SCH (08:15)
[2022-08-23] MEDS: ASPIRIN 81 MG DR TABLET PO SCH (08:15)
[2022-08-23] MEDS: CYCLOBENZAPRINE HCL 10 MG TABLET PO SCH (08:15)
[2022-08-23] MEDS: CLOPIDOGREL BISULFATE 75 MG TABLET PO SCH (08:15)
[2022-08-23] MEDS: THIAMINE 100 MG TABLET PO SCH (08:16)
[2022-08-23] MEDS: MEGESTROL ACETATE 40 MG TABLET PO SCH ×2 (08:16→20:56)
[2022-08-23] MEDS: ATENOLOL 25 MG TABLET PO SCH (08:16)
[2022-08-23] MEDS: MULTIVITAMINS, THERAPEUTIC TABLET PO SCH (08:17)
[2022-08-23] MEDS: HEPARIN SODIUM,PORCINE 5,000 UNITS/ML VIAL SQ SCH ×4 (08:17→23:50)
[2022-08-23] MEDS: HydrALAZINE HCL 25 MG TABLET PO SCH ×3 (08:17→20:56)
[2022-08-23 10:02] VITALS: BP 132/72
[2022-08-23 15:43] VITALS: BP 120/66
[2022-08-23 20:10] VITALS: BP 131/61
[2022-08-23] MEDS: ATORVASTATIN CALCIUM 20 MG TABLET PO SCH (20:56)
[2022-08-24] MEDS: ZOLPIDEM TARTRATE 5 MG TABLET PO PRN (00:39)
[2022-08-24 04:00] VITALS: BP 110/58
[2022-08-24 04:36] VITALS: BP 132/82
[2022-08-24] MEDS: HYDROCODONE/ACETAMINOPHEN 5-325 MG TABLET PO PRN ×4 (06:57→23:12)
[2022-08-24] MEDS: HEPARIN SODIUM,PORCINE 5,000 UNITS/ML VIAL SQ SCH ×3 (08:00→23:11)
[2022-08-24] MEDS: THIAMINE 100 MG TABLET PO SCH (08:58)
[2022-08-24] MEDS: CLOPIDOGREL BISULFATE 75 MG TABLET PO SCH (08:58)
[2022-08-24] MEDS: MULTIVITAMINS, THERAPEUTIC TABLET PO SCH (08:58)
[2022-08-24] MEDS: MEGESTROL ACETATE 40 MG TABLET PO SCH ×2 (08:58→21:29)
[2022-08-24] MEDS: HydrALAZINE HCL 25 MG TABLET PO SCH ×3 (08:58→21:29)
[2022-08-24] MEDS: ASPIRIN 81 MG DR TABLET PO SCH (08:58)
[2022-08-24] MEDS: AmLODIPine BESYLATE 10 MG TABLET PO SCH (08:59)
[2022-08-24] MEDS: CYCLOBENZAPRINE HCL 10 MG TABLET PO SCH (08:59)
[2022-08-24] MEDS: ATENOLOL 25 MG TABLET PO SCH (11:51)
[2022-08-24 15:37] VITALS: BP 126/52
[2022-08-24 19:43] VITALS: BP 110/50
[2022-08-24] MEDS: ATORVASTATIN CALCIUM 20 MG TABLET PO SCH (21:29)
[2022-08-25] MEDS: ZOLPIDEM TARTRATE 5 MG TABLET PO PRN ×2 (00:21→20:03)
[2022-08-25 03:30] VITALS: BP 139/63
[2022-08-25] MEDS: HYDROCODONE/ACETAMINOPHEN 5-325 MG TABLET PO PRN ×2 (05:42→20:03)
[2022-08-25 08:47] VITALS: BP 114/55
[2022-08-25] MEDS: ATENOLOL 25 MG TABLET PO SCH (09:29)
[2022-08-25] MEDS: THIAMINE 100 MG TABLET PO SCH (09:29)
[2022-08-25] MEDS: AmLODIPine BESYLATE 10 MG TABLET PO SCH (09:29)
[2022-08-25] MEDS: CLOPIDOGREL BISULFATE 75 MG TABLET PO SCH (09:30)
[2022-08-25] MEDS: HydrALAZINE HCL 25 MG TABLET PO SCH ×3 (09:30→20:03)
[2022-08-25] MEDS: HEPARIN SODIUM,PORCINE 5,000 UNITS/ML VIAL SQ SCH ×3 (09:31→23:27)
[2022-08-25] MEDS: CYCLOBENZAPRINE HCL 10 MG TABLET PO SCH (09:31)
[2022-08-25] MEDS: ASPIRIN 81 MG DR TABLET PO SCH (09:32)
[2022-08-25] MEDS: MEGESTROL ACETATE 40 MG TABLET PO SCH ×2 (09:32→20:03)
[2022-08-25] MEDS: MULTIVITAMINS, THERAPEUTIC TABLET PO SCH (09:33)
[2022-08-25 16:03] VITALS: BP 125/52
[2022-08-25] MEDS: ATORVASTATIN CALCIUM 20 MG TABLET PO SCH (20:02)
[2022-08-25 20:28] VITALS: BP 123/86
[2022-08-26 05:20] VITALS: BP 142/76
[2022-08-26] MEDS: HEPARIN SODIUM,PORCINE 5,000 UNITS/ML VIAL SQ SCH ×2 (08:00→16:00)
[2022-08-26] MEDS: MEGESTROL ACETATE 40 MG TABLET PO SCH ×2 (09:16→19:50)
[2022-08-26] MEDS: HydrALAZINE HCL 25 MG TABLET PO SCH ×3 (09:17→19:50)
[2022-08-26] MEDS: CLOPIDOGREL BISULFATE 75 MG TABLET PO SCH (09:18)
[2022-08-26] MEDS: ASPIRIN 81 MG DR TABLET PO SCH (09:18)
[2022-08-26] MEDS: AmLODIPine BESYLATE 10 MG TABLET PO SCH (09:18)
[2022-08-26] MEDS: MULTIVITAMINS, THERAPEUTIC TABLET PO SCH (09:18)
[2022-08-26] MEDS: CYCLOBENZAPRINE HCL 10 MG TABLET PO SCH (09:19)
[2022-08-26] MEDS: THIAMINE 100 MG TABLET PO SCH (09:19)
[2022-08-26] MEDS: ATENOLOL 25 MG TABLET PO SCH (11:15)
[2022-08-26 15:19] VITALS: BP 138/78
[2022-08-26] MEDS: HYDROCODONE/ACETAMINOPHEN 5-325 MG TABLET PO PRN (19:50)
[2022-08-26] MEDS: ZOLPIDEM TARTRATE 5 MG TABLET PO PRN (19:50)
[2022-08-26] MEDS: ATORVASTATIN CALCIUM 20 MG TABLET PO SCH (19:50)
[2022-08-26 20:04] VITALS: BP 135/59
[2022-08-27 05:35] VITALS: BP 137/88
[2022-08-27] MEDS: HYDROCODONE/ACETAMINOPHEN 5-325 MG TABLET PO PRN ×2 (05:53→15:31)
[2022-08-27] MEDS: HEPARIN SODIUM,PORCINE 5,000 UNITS/ML VIAL SQ SCH ×4 (08:00→23:32)
[2022-08-27] MEDS: MULTIVITAMINS, THERAPEUTIC TABLET PO SCH (09:17)
[2022-08-27] MEDS: ASPIRIN 81 MG DR TABLET PO SCH (09:22)
[2022-08-27] MEDS: THIAMINE 100 MG TABLET PO SCH (09:23)
[2022-08-27] MEDS: CYCLOBENZAPRINE HCL 10 MG TABLET PO SCH (09:23)
[2022-08-27] MEDS: CLOPIDOGREL BISULFATE 75 MG TABLET PO SCH (09:23)
[2022-08-27] MEDS: ATENOLOL 25 MG TABLET PO SCH (09:23)
[2022-08-27] MEDS: MEGESTROL ACETATE 40 MG TABLET PO SCH ×2 (09:23→20:57)
[2022-08-27] MEDS: HydrALAZINE HCL 25 MG TABLET PO SCH ×3 (09:24→20:58)
[2022-08-27] MEDS: AmLODIPine BESYLATE 10 MG TABLET PO SCH (09:24)
[2022-08-27 10:37] VITALS: BP 138/60
[2022-08-27 17:21] VITALS: BP 141/75
[2022-08-27 20:25] VITALS: BP 121/59
[2022-08-27] MEDS: ATORVASTATIN CALCIUM 20 MG TABLET PO SCH (20:57)
[2022-08-28] MEDS: HYDROCODONE/ACETAMINOPHEN 5-325 MG TABLET PO PRN (00:07)
[2022-08-28 04:50] VITALS: BP 146/72
[2022-08-28 07:58] VITALS: BP 105/57
[2022-08-28] MEDS: HEPARIN SODIUM,PORCINE 5,000 UNITS/ML VIAL SQ SCH ×3 (08:00→23:38)
[2022-08-28] MEDS: MEGESTROL ACETATE 40 MG TABLET PO SCH ×2 (09:15→20:59)
[2022-08-28] MEDS: CLOPIDOGREL BISULFATE 75 MG TABLET PO SCH (09:15)
[2022-08-28] MEDS: THIAMINE 100 MG TABLET PO SCH (09:15)
[2022-08-28] MEDS: AmLODIPine BESYLATE 10 MG TABLET PO SCH (09:15)
[2022-08-28] MEDS: MULTIVITAMINS, THERAPEUTIC TABLET PO SCH (09:16)
[2022-08-28] MEDS: ASPIRIN 81 MG DR TABLET PO SCH (09:16)
[2022-08-28] MEDS: CYCLOBENZAPRINE HCL 10 MG TABLET PO SCH (09:16)
[2022-08-28] MEDS: HydrALAZINE HCL 25 MG TABLET PO SCH ×3 (09:17→21:00)
[2022-08-28] MEDS: ATENOLOL 25 MG TABLET PO SCH (10:00)
[2022-08-28 15:15] VITALS: BP 105/71
[2022-08-28 20:58] VITALS: BP 138/70
[2022-08-28] MEDS: ATORVASTATIN CALCIUM 20 MG TABLET PO SCH (20:59)
[2022-08-29] MEDS: HYDROCODONE/ACETAMINOPHEN 5-325 MG TABLET PO PRN ×2 (00:44→20:09)
[2022-08-29 04:10] VITALS: BP 129/78
[2022-08-29] MEDS: HEPARIN SODIUM,PORCINE 5,000 UNITS/ML VIAL SQ SCH ×3 (08:00→23:29)
[2022-08-29] MEDS: ASPIRIN 81 MG DR TABLET PO SCH (08:59)
[2022-08-29] MEDS: MULTIVITAMINS, THERAPEUTIC TABLET PO SCH (08:59)
[2022-08-29] MEDS: HydrALAZINE HCL 25 MG TABLET PO SCH ×3 (08:59→20:15)
[2022-08-29] MEDS: AmLODIPine BESYLATE 10 MG TABLET PO SCH (09:00)
[2022-08-29] MEDS: CLOPIDOGREL BISULFATE 75 MG TABLET PO SCH (09:00)
[2022-08-29] MEDS: THIAMINE 100 MG TABLET PO SCH (09:00)
[2022-08-29] MEDS: MEGESTROL ACETATE 40 MG TABLET PO SCH ×2 (09:00→20:05)
[2022-08-29] MEDS: CYCLOBENZAPRINE HCL 10 MG TABLET PO SCH (09:05)
[2022-08-29 10:00] VITALS: BP 131/74
[2022-08-29] MEDS: ATENOLOL 25 MG TABLET PO SCH (11:16)
[2022-08-29 17:06] VITALS: BP 104/70
[2022-08-29 19:49] VITALS: BP 106/57
[2022-08-29] MEDS: ATORVASTATIN CALCIUM 20 MG TABLET PO SCH (20:04)
[2022-08-29] MEDS: ZOLPIDEM TARTRATE 5 MG TABLET PO PRN (23:31)
[2022-08-30 05:32] VITALS: BP 128/56
[2022-08-30] MEDS: HYDROCODONE/ACETAMINOPHEN 5-325 MG TABLET PO PRN ×2 (06:48→12:20)
[2022-08-30 08:00] VITALS: BP 128/63
[2022-08-30] MEDS: HEPARIN SODIUM,PORCINE 5,000 UNITS/ML VIAL SQ SCH ×4 (08:00→23:40)
[2022-08-30] MEDS: MULTIVITAMINS, THERAPEUTIC TABLET PO SCH (08:44)
[2022-08-30] MEDS: CYCLOBENZAPRINE HCL 10 MG TABLET PO SCH (08:45)
[2022-08-30] MEDS: THIAMINE 100 MG TABLET PO SCH (08:45)
[2022-08-30] MEDS: CLOPIDOGREL BISULFATE 75 MG TABLET PO SCH (08:45)
[2022-08-30] MEDS: AmLODIPine BESYLATE 10 MG TABLET PO SCH (08:45)
[2022-08-30] MEDS: HydrALAZINE HCL 25 MG TABLET PO SCH ×3 (08:45→21:00)
[2022-08-30] MEDS: ASPIRIN 81 MG DR TABLET PO SCH (08:45)
[2022-08-30] MEDS: MEGESTROL ACETATE 40 MG TABLET PO SCH ×2 (08:46→21:15)
[2022-08-30] MEDS: ATENOLOL 25 MG TABLET PO SCH (10:32)
[2022-08-30 15:33] VITALS: BP 108/57
[2022-08-30 19:30] VITALS: BP 113/63
[2022-08-30] MEDS: ATORVASTATIN CALCIUM 20 MG TABLET PO SCH (21:14)
[2022-08-31] MEDS: ZOLPIDEM TARTRATE 5 MG TABLET PO PRN (00:59)
[2022-08-31 04:15] VITALS: BP 130/70
[2022-08-31 08:00] VITALS: BP 149/68
[2022-08-31] MEDS: HEPARIN SODIUM,PORCINE 5,000 UNITS/ML VIAL SQ SCH ×3 (08:00→20:08)
[2022-08-31] MEDS: AmLODIPine BESYLATE 10 MG TABLET PO SCH (08:21)
[2022-08-31] MEDS: HydrALAZINE HCL 25 MG TABLET PO SCH ×3 (08:21→19:46)
[2022-08-31] MEDS: THIAMINE 100 MG TABLET PO SCH (08:21)
[2022-08-31] MEDS: CLOPIDOGREL BISULFATE 75 MG TABLET PO SCH (08:21)
[2022-08-31] MEDS: CYCLOBENZAPRINE HCL 10 MG TABLET PO SCH (08:22)
[2022-08-31] MEDS: MEGESTROL ACETATE 40 MG TABLET PO SCH ×2 (08:22→19:46)
[2022-08-31] MEDS: MULTIVITAMINS, THERAPEUTIC TABLET PO SCH (08:22)
[2022-08-31] MEDS: ASPIRIN 81 MG DR TABLET PO SCH (08:22)
[2022-08-31] MEDS: ATENOLOL 25 MG TABLET PO SCH (11:33)
[2022-08-31] MEDS: HYDROCODONE/ACETAMINOPHEN 5-325 MG TABLET PO PRN ×2 (13:56→17:51)
[2022-08-31 15:37] VITALS: BP 104/73
[2022-08-31 19:20] VITALS: BP 100/77
[2022-08-31] MEDS: ATORVASTATIN CALCIUM 20 MG TABLET PO SCH (19:46)
[2022-09-01 04:10] VITALS: BP 141/57
[2022-09-01] MEDS: HEPARIN SODIUM,PORCINE 5,000 UNITS/ML VIAL SQ SCH ×3 (08:41→22:35)
[2022-09-01] MEDS: THIAMINE 100 MG TABLET PO SCH (08:41)
[2022-09-01] MEDS: HydrALAZINE HCL 25 MG TABLET PO SCH ×3 (08:42→20:51)
[2022-09-01] MEDS: MEGESTROL ACETATE 40 MG TABLET PO SCH ×2 (08:42→20:51)
[2022-09-01] MEDS: ATENOLOL 25 MG TABLET PO SCH (08:42)
[2022-09-01] MEDS: CYCLOBENZAPRINE HCL 10 MG TABLET PO SCH (08:42)
[2022-09-01] MEDS: CLOPIDOGREL BISULFATE 75 MG TABLET PO SCH (08:43)
[2022-09-01] MEDS: ASPIRIN 81 MG DR TABLET PO SCH (08:43)
[2022-09-01] MEDS: MULTIVITAMINS, THERAPEUTIC TABLET PO SCH (08:43)
[2022-09-01] MEDS: AmLODIPine BESYLATE 10 MG TABLET PO SCH (08:43)
[2022-09-01] MEDS: DOCUSATE SODIUM 100 MG CAPSULE PO PRN (08:43)
[2022-09-01] MEDS: HYDROCODONE/ACETAMINOPHEN 5-325 MG TABLET PO PRN ×3 (08:43→22:27)
[2022-09-01 09:32] VITALS: BP 134/58
[2022-09-01 16:10] VITALS: BP 128/64
[2022-09-01 20:46] VITALS: BP 119/46
[2022-09-01] MEDS: ATORVASTATIN CALCIUM 20 MG TABLET PO SCH (20:51)
[2022-09-02 04:40] VITALS: BP 129/69
[2022-09-02 07:52] VITALS: BP 126/79
[2022-09-02] MEDS: HEPARIN SODIUM,PORCINE 5,000 UNITS/ML VIAL SQ SCH ×3 (08:00→23:42)
[2022-09-02] MEDS: MULTIVITAMINS, THERAPEUTIC TABLET PO SCH (09:03)
[2022-09-02] MEDS: HydrALAZINE HCL 25 MG TABLET PO SCH ×3 (09:04→20:36)
[2022-09-02] MEDS: CLOPIDOGREL BISULFATE 75 MG TABLET PO SCH (09:04)
[2022-09-02] MEDS: CYCLOBENZAPRINE HCL 10 MG TABLET PO SCH (09:04)
[2022-09-02] MEDS: ASPIRIN 81 MG DR TABLET PO SCH (09:04)
[2022-09-02] MEDS: AmLODIPine BESYLATE 10 MG TABLET PO SCH (09:04)
[2022-09-02] MEDS: THIAMINE 100 MG TABLET PO SCH (09:04)
[2022-09-02] MEDS: MEGESTROL ACETATE 40 MG TABLET PO SCH ×2 (09:05→20:37)
[2022-09-02] MEDS: ATENOLOL 25 MG TABLET PO SCH (10:25)
[2022-09-02 15:14] VITALS: BP 112/52
[2022-09-02] MEDS: ATORVASTATIN CALCIUM 20 MG TABLET PO SCH (20:37)
[2022-09-02 22:13] VITALS: BP 129/46
[2022-09-03] MEDS: HYDROCODONE/ACETAMINOPHEN 5-325 MG TABLET PO PRN ×2 (06:03→12:50)
[2022-09-03 06:56] VITALS: BP 132/54
[2022-09-03] MEDS: HEPARIN SODIUM,PORCINE 5,000 UNITS/ML VIAL SQ SCH ×3 (08:00→15:15)
[2022-09-03] MEDS: MULTIVITAMINS, THERAPEUTIC TABLET PO SCH (08:12)
[2022-09-03] MEDS: THIAMINE 100 MG TABLET PO SCH (08:12)
[2022-09-03] MEDS: MEGESTROL ACETATE 40 MG TABLET PO SCH ×2 (08:13→21:06)
[2022-09-03] MEDS: CLOPIDOGREL BISULFATE 75 MG TABLET PO SCH (08:13)
[2022-09-03] MEDS: AmLODIPine BESYLATE 10 MG TABLET PO SCH (08:13)
[2022-09-03] MEDS: ASPIRIN 81 MG DR TABLET PO SCH (08:13)
[2022-09-03] MEDS: DOCUSATE SODIUM 100 MG CAPSULE PO PRN (08:16)
[2022-09-03] MEDS: CYCLOBENZAPRINE HCL 10 MG TABLET PO SCH (08:17)
[2022-09-03] MEDS: HydrALAZINE HCL 25 MG TABLET PO SCH ×3 (08:29→21:06)
[2022-09-03] MEDS: ATENOLOL 25 MG TABLET PO SCH (08:29)
[2022-09-03 10:39] VITALS: BP 144/64
[2022-09-03 17:18] VITALS: BP 108/54
[2022-09-03 20:52] VITALS: BP 123/59
[2022-09-03] MEDS: ATORVASTATIN CALCIUM 20 MG TABLET PO SCH (21:06)
[2022-09-04] MEDS: HYDROCODONE/ACETAMINOPHEN 5-325 MG TABLET PO PRN ×3 (00:12→19:31)
[2022-09-04 04:37] VITALS: BP 131/51
[2022-09-04] MEDS: MEGESTROL ACETATE 40 MG TABLET PO SCH ×2 (08:14→21:06)
[2022-09-04] MEDS: AmLODIPine BESYLATE 10 MG TABLET PO SCH (08:14)
[2022-09-04] MEDS: THIAMINE 100 MG TABLET PO SCH (08:14)
[2022-09-04] MEDS: HydrALAZINE HCL 25 MG TABLET PO SCH ×3 (08:14→20:22)
[2022-09-04] MEDS: ASPIRIN 81 MG DR TABLET PO SCH (08:15)
[2022-09-04] MEDS: HEPARIN SODIUM,PORCINE 5,000 UNITS/ML VIAL SQ SCH ×4 (08:15→23:58)
[2022-09-04] MEDS: CYCLOBENZAPRINE HCL 10 MG TABLET PO SCH (08:15)
[2022-09-04] MEDS: MULTIVITAMINS, THERAPEUTIC TABLET PO SCH (08:15)
[2022-09-04] MEDS: CLOPIDOGREL BISULFATE 75 MG TABLET PO SCH (08:15)
[2022-09-04 08:43] VITALS: BP 123/58
[2022-09-04] MEDS: ATENOLOL 25 MG TABLET PO SCH (11:00)
[2022-09-04 16:02] VITALS: BP 122/62
[2022-09-04 19:30] VITALS: BP 103/63
[2022-09-04] MEDS: ZOLPIDEM TARTRATE 5 MG TABLET PO PRN (19:31)
[2022-09-04] MEDS: ATORVASTATIN CALCIUM 20 MG TABLET PO SCH (21:06)
[2022-09-05 03:48] VITALS: BP 132/57
[2022-09-05] MEDS: HYDROCODONE/ACETAMINOPHEN 5-325 MG TABLET PO PRN ×3 (04:01→18:57)
[2022-09-05] MEDS: HEPARIN SODIUM,PORCINE 5,000 UNITS/ML VIAL SQ SCH ×3 (08:00→23:38)
[2022-09-05] MEDS: CLOPIDOGREL BISULFATE 75 MG TABLET PO SCH (08:26)
[2022-09-05] MEDS: THIAMINE 100 MG TABLET PO SCH (08:26)
[2022-09-05] MEDS: CYCLOBENZAPRINE HCL 10 MG TABLET PO SCH (08:26)
[2022-09-05] MEDS: MEGESTROL ACETATE 40 MG TABLET PO SCH ×2 (08:26→21:57)
[2022-09-05] MEDS: MULTIVITAMINS, THERAPEUTIC TABLET PO SCH (08:26)
[2022-09-05] MEDS: HydrALAZINE HCL 25 MG TABLET PO SCH ×3 (08:26→21:57)
[2022-09-05] MEDS: ASPIRIN 81 MG DR TABLET PO SCH (08:26)
[2022-09-05] MEDS: AmLODIPine BESYLATE 10 MG TABLET PO SCH (08:43)
[2022-09-05 09:06] VITALS: BP 163/74
[2022-09-05] MEDS: ATENOLOL 25 MG TABLET PO SCH (11:08)
[2022-09-05 17:42] VITALS: BP 128/63
[2022-09-05] MEDS: DOCUSATE SODIUM 100 MG CAPSULE PO PRN (18:57)
[2022-09-05 20:00] VITALS: BP 121/58
[2022-09-05] MEDS: ATORVASTATIN CALCIUM 20 MG TABLET PO SCH (21:57)
[2022-09-06] MEDS: ZOLPIDEM TARTRATE 5 MG TABLET PO PRN (01:07)
[2022-09-06] MEDS: HYDROCODONE/ACETAMINOPHEN 5-325 MG TABLET PO PRN ×4 (01:07→21:22)
[2022-09-06 05:19] VITALS: BP 123/85
[2022-09-06] MEDS: HEPARIN SODIUM,PORCINE 5,000 UNITS/ML VIAL SQ SCH ×2 (08:00→16:00)
[2022-09-06 08:30] VITALS: BP 160/85
[2022-09-06] MEDS: CLOPIDOGREL BISULFATE 75 MG TABLET PO SCH (08:43)
[2022-09-06] MEDS: MEGESTROL ACETATE 40 MG TABLET PO SCH ×2 (08:44→20:51)
[2022-09-06] MEDS: AmLODIPine BESYLATE 10 MG TABLET PO SCH (08:44)
[2022-09-06] MEDS: HydrALAZINE HCL 25 MG TABLET PO SCH ×3 (08:45→21:22)
[2022-09-06] MEDS: MULTIVITAMINS, THERAPEUTIC TABLET PO SCH (08:45)
[2022-09-06] MEDS: CYCLOBENZAPRINE HCL 10 MG TABLET PO SCH (08:45)
[2022-09-06] MEDS: DOCUSATE SODIUM 100 MG CAPSULE PO PRN ×2 (08:46→21:22)
[2022-09-06] MEDS: ASPIRIN 81 MG DR TABLET PO SCH (08:46)
[2022-09-06] MEDS: THIAMINE 100 MG TABLET PO SCH (08:46)
[2022-09-06] MEDS: ATENOLOL 25 MG TABLET PO SCH (10:47)
[2022-09-06 17:05] VITALS: BP 128/54
[2022-09-06 20:45] VITALS: BP 125/48
[2022-09-06] MEDS: ATORVASTATIN CALCIUM 20 MG TABLET PO SCH (20:51)
[2022-09-07] MEDS: HYDROCODONE/ACETAMINOPHEN 5-325 MG TABLET PO PRN ×4 (02:32→21:36)
[2022-09-07 04:35] VITALS: BP 127/59
[2022-09-07] MEDS: HEPARIN SODIUM,PORCINE 5,000 UNITS/ML VIAL SQ SCH ×4 (08:00→23:29)
[2022-09-07] MEDS: ASPIRIN 81 MG DR TABLET PO SCH (08:29)
[2022-09-07] MEDS: CYCLOBENZAPRINE HCL 10 MG TABLET PO SCH (08:29)
[2022-09-07] MEDS: THIAMINE 100 MG TABLET PO SCH (08:29)
[2022-09-07] MEDS: MULTIVITAMINS, THERAPEUTIC TABLET PO SCH (08:29)
[2022-09-07] MEDS: CLOPIDOGREL BISULFATE 75 MG TABLET PO SCH (08:29)
[2022-09-07] MEDS: HydrALAZINE HCL 25 MG TABLET PO SCH ×3 (08:29→21:34)
[2022-09-07] MEDS: AmLODIPine BESYLATE 10 MG TABLET PO SCH (08:29)
[2022-09-07] MEDS: MEGESTROL ACETATE 40 MG TABLET PO SCH ×2 (09:08→21:35)
[2022-09-07 10:26] VITALS: BP 165/75
[2022-09-07] MEDS: ATENOLOL 25 MG TABLET PO SCH (11:04)
[2022-09-07 16:44] VITALS: BP 137/69
[2022-09-07 20:12] VITALS: BP 124/56
[2022-09-07] MEDS: ATORVASTATIN CALCIUM 20 MG TABLET PO SCH (21:34)
[2022-09-08 04:12] VITALS: BP 132/83
[2022-09-08] MEDS: CLOPIDOGREL BISULFATE 75 MG TABLET PO SCH (09:15)
[2022-09-08] MEDS: AmLODIPine BESYLATE 10 MG TABLET PO SCH (09:15)
[2022-09-08] MEDS: MULTIVITAMINS, THERAPEUTIC TABLET PO SCH (09:15)
[2022-09-08] MEDS: HydrALAZINE HCL 25 MG TABLET PO SCH (09:15)
[2022-09-08] MEDS: THIAMINE 100 MG TABLET PO SCH (09:15)
[2022-09-08] MEDS: ATENOLOL 25 MG TABLET PO SCH (09:15)
[2022-09-08] MEDS: ASPIRIN 81 MG DR TABLET PO SCH (09:15)
[2022-09-08] MEDS: CYCLOBENZAPRINE HCL 10 MG TABLET PO SCH (09:16)
[2022-09-08] MEDS: HEPARIN SODIUM,PORCINE 5,000 UNITS/ML VIAL SQ SCH (09:16)
[2022-09-08] MEDS: HYDROCODONE/ACETAMINOPHEN 5-325 MG TABLET PO PRN (09:27)
[2022-09-08] MEDS: MEGESTROL ACETATE 40 MG TABLET PO SCH (09:27)
[2022-09-08 10:39] VITALS: BP 158/40
== END 2022-09-08 14:35 | DRG 45 ==
LOC: EMS 09:04 → 5S 10:56 → 6S 06-05 22:31
PROVIDERS: ADMIT Internal Medicine; ATTEND Internal Medicine
DX: I63.511 Cerebral infarction due to unspecified occlusion or stenosis of right middle cerebral artery (principal); U07.1 COVID-19; E44.0 Moderate protein-calorie malnutrition; E87.1 Hypo-osmolality and hyponatremia; G81.94 Hemiplegia, unspecified affecting left nondominant side; E11.9 Type 2 diabetes mellitus without complications; D64.9 Anemia, unspecified; E78.5 Hyperlipidemia, unspecified; I16.1 Hypertensive emergency; F17.200 Nicotine dependence, unspecified, uncomplicated; R29.810 Facial weakness; F94.0 Selective mutism; I10 Essential (primary) hypertension; F43.21 Adjustment disorder with depressed mood; I25.10 Atherosclerotic heart disease of native coronary artery without angina pectoris; Z79.02 Long term (current) use of antithrombotics/antiplatelets; Z79.82 Long term (current) use of aspirin; I25.2 Old myocardial infarction; Z79.899 Other long term (current) drug therapy; Z95.1 Presence of aortocoronary bypass graft; Z91.199 Patient's noncompliance with other medical treatment and regimen due to unspecified reason; Z68.21 Body mass index [BMI] 21.0-21.9, adult
CPT/HCPCS: 70450; 70551; 71045; 80048; 80053; 80061; 80076; 81001; 82962; 83036; 83735; 84100; 84132; 84145; 84443; 84484; 85025; 87081; 87086; 87186; 92507; 92610; 93005; 93880; 97110; 97112; 97162; 97530; 97535; 99285; J0360; J1644; J2270; 36415-L1; 36415-TC